=== PATIENT | male | born 1950 | race Caucasian/White ===

== ENCOUNTER 2016-03-30 07:24 | Outpatient (CLI) | payer MEDICARE, BC | END 2016-03-30 07:25 | disposition home or self-care (01) | DX: I10 Essential (primary) hypertension (principal) ==

== ENCOUNTER 2017-04-10 18:38 | Emergency (ER) | payer MEDICARE, BC ==
[2017-04-10] MEDS ORDERED: BACITRACIN OINT TOP STA (20:07)
--- NOTE | 2017-04-10 20:10 | ED Physician Documentation ---
PD HPI HEENT - Stated complaint Stated Complaint: FACE INJ - Chief complaint Chief Complaint: Heent - History obtained from History obtained from: Patient, Family - History of Present Illness Timing - onset: Today Timing - details: Abrupt onset Location: Nose, Mouth Associated symptoms: No: Fever, Unable to swallow Similar symptoms before: Has not had sx before Recently seen: Not recently seen - Additional information Additional information: Patient is a 66 year old male with no significant past medical history who is presenting to the emergency department after falling. patient states that he mis stepped and fell foward hitting his face. patient denies any loc and denies any blood thinners. Review of Systems Constitutional: denies: Fever, Chills Eyes: denies: Decreased vision, Photophobia Ears: denies: Drainage/discharge Nose: denies: Epistaxis Throat: denies: Dental pain / toothache Cardiac: denies: Chest pain / pressure Respiratory: denies: Dyspnea GI: denies: Nausea, Vomiting Skin: reports: Abrasion (s) Musculoskeletal: denies: Neck pain, Back pain, Extremity pain Neurologic: reports: Head injury. denies: Generalized weakness, Focal weakness , Headache Immunocompromised: denies: Immunocompromised PD PAST MEDICAL HISTORY - Past Medical History Cardiovascular: Hypertension, High cholesterol Respiratory: None GI: Hepatitis : Other HEENT: Chronic vision loss, Chronic sinusitis, Chronic hearing loss Psych: Anxiety, Panic attacks Musculoskeletal: None Derm: None - Past Surgical History Past Surgical History: Yes General: Other HEENT: Cataracts Derm: Skin cancer surgery - Present Medications Home Medications: Ambulatory Orders Medication Instructions Recorded Confirmed Acetaminophen [Tylenol] 650 mg PO Q6H PRN #30 tablet 11/07/12 04/10/17 Alprazolam [Xanax] 0.5 mg PO DAILY 11/07/12 04/10/17 Cholecalciferol (Vitamin D3) 20,000 unit PO DAILY 11/07/12 04/10/17 [Vitamin D] Fenofibric Acid (Choline) 135 mg PO DAILY 11/07/12 04/10/17 [Trilipix] Lisinopril [Zestril] 10 mg PO DAILY 11/07/12 04/10/17 Oxybutynin [Ditropan] 10 mg PO DAILY 11/07/12 04/10/17 Tamsulosin [Flomax] 0.4 mg PO DAILY 11/07/12 04/10/17 - Allergies Allergies/Adverse Reactions: Allergies Allergy/AdvReac Type Severity Reaction Status Date / Time No Known Drug Allergies Allergy Verified 04/16/15 11:02 - Social History Does the pt smoke?: No Smoking Status: Never smoker Does the pt drink ETOH?: Yes Does the pt have substance abuse?: No Substance Use and Type: Marijuana - Immunizations Immunizations are current?: Yes - POLST Patient has POLST: No PD ED PE NORMAL - Vitals Vital signs reviewed: Yes - General General: Alert and oriented X 3, No acute distress - HEENT HEENT: Moist mucous membranes - Neck Neck: Supple, no meningeal sign, No bony TTP - Cardiac Cardiac: RRR, No murmur - Respiratory Respiratory: No respiratory distress - Abdomen Abdomen: Soft, Non tender, Non distended - Extremities Extremities: No tenderness to palpate - Neuro Neuro: Alert and oriented X 3, No motor deficit, No sensory deficit, Normal speech Eye Opening: Spontaneous Motor: Obeys Commands Verbal: Oriented GCS Score: 15 - Psych Psych: Normal mood PD ED PE EXPANDED - HEENT HEENT: Head injury (abrasion to right side of patients face, hematoma above right eye, abrasion on nose and mouth), PERRL, Other (no pain with ocular movement. No sign of entraptment). No: Gaze palsy, Right nares epsitaxis, Left nares epistaxis, Dental trauma Results - Vitals Vitals: Vital Signs - 24 hr 04/10/17 04/10/17 18:49 20:19 Temperature 36.7 C 36.4 C L Heart Rate 74 65 Respiratory 16 18 Rate Blood Pressure 140/102 H 148/98 H O2 Saturation 96 96 Oxygen O2 Source Room air PD MEDICAL DECISION MAKING - ED course Complexity details: reviewed old records, reviewed results, re-evaluated patient , considered differential, d/w patient ED course: Patient was seen and examined at bedside. Patient was well appearing and no distress. Patient had no bony deformity and the likelihood of significant fracture was low. Patient's wounds were cleaned and dressed. Patient required no further work up and was stable for discharge with outpatient follow up. Departure - Departure Disposition: 01 Home, Self Care Clinical Impression: Facial abrasion Condition: Good Instructions: ED Abrasion Follow-Up: Santana Daugherty MD [Primary Care Provider] - Within 3 Days Comments: It is unlikely that there are any fractures. You will need to keep your wounds clean and dry and you can apply topical antibiotics. You will likely be more sore tomorrow and the next day and will likely develop neck and back pain, along with extra bruising. You should take motrin or tylenol as needed for pain. You may return to the emergency department at any time for new, worsening or uncontrollable symptoms. Discharge Date/Time: 04/10/17 20:25
[2017-04-10] MEDS ORDERED: ACETAMINOPHEN 500 MG TABLET PO STA (20:12)
[2017-04-10 20:19] VITALS: BP 148/98
== END 2017-04-10 20:25 | disposition home or self-care (01) ==
LOC: ED 18:38
DX: S00.81XA Abrasion of other part of head, initial encounter (principal); S00.11XA Contusion of right eyelid and periocular area, initial encounter; W10.9XXA Fall (on) (from) unspecified stairs and steps, initial encounter; I10 Essential (primary) hypertension; E78.00 Pure hypercholesterolemia, unspecified; K75.9 Inflammatory liver disease, unspecified
CPT/HCPCS: 99283; A9270

== ENCOUNTER 2018-01-28 08:48 | Inpatient (IN) | payer MEDICARE, BC ==
[2018-01-28] MEDS ORDERED: MORPHINE 2 MG/ML CARPUJECT IVP STA (09:38)
[2018-01-28] MEDS ORDERED: ONDANSETRON 4 MG/2 ML VIAL IVP STA (09:38)
[2018-01-28] MEDS ORDERED: SODIUM CHLORIDE 0.9% 1,000 ML IV ONE (09:38)
--- NOTE | 2018-01-28 09:40 | ED Physician Documentation ---
History of Present Illness - Stated complaint Stated Complaint: MALE RT SIDE - Chief complaint Chief Complaint: General - Additonal information Additional information: hx from pt 67 male playing with heavy dog yesterday swelling to R inguinal region similar to prior hernia cannot reduce having BM chills no fever no NV Review of Systems Constitutional: denies: Fever Cardiac: denies: Chest pain / pressure Respiratory: denies: Dyspnea GI: reports: Abdominal Pain. denies: Nausea, Vomiting PD PAST MEDICAL HISTORY - Past Medical History Past Medical History: Yes Cardiovascular: Hypertension, High cholesterol Respiratory: Pneumonia Neuro: None GI: Hepatitis : Other HEENT: Chronic vision loss, Chronic sinusitis, Chronic hearing loss Psych: Anxiety, Panic attacks Musculoskeletal: None Derm: None Other Past Medical History: hernia - Past Surgical History Past Surgical History: Yes General: Other HEENT: Cataracts Derm: Skin cancer surgery - Present Medications Home Medications: Ambulatory Orders Medication Instructions Recorded Confirmed Acetaminophen [Tylenol] 650 mg PO Q6H PRN #30 tablet 11/07/12 04/10/17 Alprazolam [Xanax] 0.5 mg PO DAILY 11/07/12 04/10/17 Cholecalciferol (Vitamin D3) 20,000 unit PO DAILY 11/07/12 04/10/17 [Vitamin D] Fenofibric Acid (Choline) 135 mg PO DAILY 11/07/12 04/10/17 [Trilipix] Lisinopril [Zestril] 10 mg PO DAILY 11/07/12 04/10/17 Oxybutynin [Ditropan] 10 mg PO DAILY 11/07/12 04/10/17 Tamsulosin [Flomax] 0.4 mg PO DAILY 11/07/12 04/10/17 - Allergies Allergies/Adverse Reactions: Allergies Allergy/AdvReac Type Severity Reaction Status Date / Time No Known Drug Allergies Allergy Verified 04/16/15 11:02 - Social History Does the pt smoke?: No Smoking Status: Former smoker Does the pt drink ETOH?: Yes ETOH Use: Wine Does the pt have substance abuse?: Yes Substance Use and Type: Marijuana - Immunizations Immunizations are current?: Yes - POLST Patient has POLST: No PD ED PE NORMAL - Vitals Vital signs reviewed: Yes - General General: Alert and oriented X 3 - Cardiac Cardiac: RRR - Respiratory Respiratory: No respiratory distress - Abdomen Abdomen: Other (+ BS non distended firm irreducible R inguinal hernia) Results - Vitals Vitals: Vital Signs - 24 hr 01/28/18 08:54 Temperature 36.3 C L Heart Rate 85 Respiratory 18 Rate Blood Pressure 185/104 H O2 Saturation 96 Oxygen O2 Source Room air - Labs Labs: Laboratory Tests 01/28/18 01/28/18 11:51 11:51 WBC 19.8 H RBC 4.85 Hgb 15.6 Hct 45.9 MCV 94.7 H MCH 32.2 H MCHC 34.0 RDW 13.2 Plt Count 268 MPV 7.4 Neut # (Auto) 18.4 H Lymph # (Auto) 0.4 L [place] # (Auto) 0.9 Eos # (Auto) 0.0 Baso # (Auto) 0.0 Absolute Nucleated RBC 0.01 Nucleated RBC % 0.0 Manual Slide Review Indicated Sodium 133 L Potassium 3.2 L Chloride 98 L Carbon Dioxide 26 Anion Gap 9.0 BUN 18 Creatinine 1.0 Estimated GFR (MDRD) 74 L Glucose 152 H Calcium 9.2 PD MEDICAL DECISION MAKING - ED course ED course: I am still unable to reduce after morphine 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
--- NOTE | 2018-01-28 11:56 | ANESTHESIA ---
Pre-Anesthesia VS, & Labs - Diagnosis Right inguinal hernia - Procedure Right inguinal hernia repair Vital Signs: Temp Pulse Resp BP Pulse Ox 36.3 C L 85 18 185/104 H 96 01/28/18 08:54 01/28/18 08:54 01/28/18 08:54 01/28/18 08:54 01/28/18 08:54 Height 5 ft 7 in Weight (kg) 68.946 kg Body Mass Index 23.8 - NPO >8 hours Last Fluid Intake: H2O 0730 Home Medications and Allergies Alprazolam [Xanax] 0.5 mg PO DAILY 11/07/12 Cholecalciferol (Vitamin D3) [Vitamin D] 20,000 unit PO DAILY 11/07/12 Fenofibric Acid (Choline) [Trilipix] 135 mg PO DAILY 11/07/12 Lisinopril [Zestril] 10 mg PO DAILY 11/07/12 Oxybutynin [Ditropan] 10 mg PO DAILY 11/07/12 Tamsulosin [Flomax] 0.4 mg PO DAILY 11/07/12 Allergies/Adverse Reactions: Allergies Allergy/AdvReac Type Severity Reaction Status Date / Time No Known Drug Allergies Allergy Verified 04/16/15 11:02 Anes History & Medical History - Anesthetic History Anesthesia Complications: reports: No previous complications - Medical History Cardiovascular: reports: Hypertension, High cholesterol Pulmonary: reports: None Gastrointestinal: reports: Hepatitis (Hep C+ s/p treatment) Urinary: reports: Benign prostate hypertrophy Neuro: reports: None Musculoskeletal: reports: None Endocrine/Autoimmune: reports: None Blood Disorders: reports: None Skin: reports: None Smoking Status: Former smoker (Quit in 1981) Psychosocial: reports: Depression, Anxiety, Cannabis Other Past Medical History: hernia - Surgical History General: Other (Bilateral inguinal hernia repair) Eyes Ears Nose Throat (EENT): Cataracts Dermatologic: Skin cancer surgery Exam General: Alert, Oriented x3, Cooperative, No acute distress Dental: WNL Mouth Openin Fingerbreadth Neck Mobility: Normal Mallampati classification: II Thyromental Distance: 4-6 cm Respiratory: Lungs clear, Normal breath sounds, No respiratory distress, No accessory muscle use Cardiovascular: Regular rate, Normal S1, Normal S2, No murmurs Mental/Cognitive Status: Alert/Oriented X3, Normal for patient Cognitive Status: Within normal limits Plan Anesthesia Type: General Consent for Procedure(s) Verified and Reviewed: Yes Code Status: Attempt Resuscitation ASA classification: 2-Mild systemic disease Is this case an emergency?: Yes
[2018-01-28] MEDS ORDERED: BUPIVACAINE 0.5% PF 30 ML VIAL ONE (11:57)
[2018-01-28] MEDS ORDERED: ceFAZolin 2 GM/50 ML 2 GM/50 ML BAG IV SCH (12:15)
[2018-01-28 12:17] LABS: CALCIUM 9.2 mg/dL (8.5-10.3)
[2018-01-28 12:36] LABS: BASOPHILS % (AUTO) 0.1 %; HGB - HEMOGLOBIN 15.6 g/dL (14.0-18.0); LYMPHOCYTES # (AUTO) 0.4 10^3/uL (1.5-3.5); LYMPHOCYTES % (AUTO) 2.1 %; MEAN CORPUSCULAR HEMOGLOBIN 32.2 pg (27.0-31.0); MEAN CORPUSCULAR VOLUME 94.7 fL (80.0-94.0); MEAN PLATELET VOLUME 7.4 fL (7.4-11.4); MONOCYTES # (AUTO) 0.9 10^3/uL (0.0-1.0); MONOCYTES % (AUTO) 4.7 %; NEUTROPHILS # (AUTO) 18.4 10^3/uL (1.5-6.6); NEUTROPHILS % (AUTO) 93.1 %; PLT - PLATELET COUNT 268 10^3/uL (130-450); RED BLOOD COUNT 4.85 10^6/uL (4.70-6.10); RED CELL DISTRIBUTION WIDTH 13.2 % (12.0-15.0); WHITE BLOOD COUNT 19.8 x10^3/uL (4.8-10.8)
[2018-01-28] MEDS ORDERED: LACTATED RINGERS 1,000 ML IV ONE (12:39)
[2018-01-28] MEDS ORDERED: PHENYLEPHRINE 50 MG/5 ML VIAL IV ONE (13:04)
[2018-01-28] MEDS ORDERED: ACETAMINOPHEN 1,000 MG/100 ML 100 ML IV ONE (13:04)
[2018-01-28] MEDS ORDERED: PROPOFOL 200 MG/20 ML VIAL IVP ONE (13:04)
[2018-01-28] MEDS ORDERED: fentaNYL 100 MCG/2 ML VIAL IVP ONE (13:04)
[2018-01-28] MEDS ORDERED: MIDAZOLAM 2 MG/2 ML VIAL IVP ONE (13:04)
[2018-01-28] MEDS ORDERED: SODIUM CHLORIDE FLUSH 0.9% 10 ML SYRINGE IVP PRN (14:13)
[2018-01-28] MEDS ORDERED: MORPHINE 10 MG/ML VIAL IVP PRN (14:19)
--- NOTE | 2018-01-28 14:29 | IMMEDIATE POSTOPERATIVE NOTE ---
Immediate Postoperative Note - Procedure Note Procedure Date: 01/28/18 Pre-Op Diagnosis: incarcerated right inguinal hernia Procedure: open right inguinal hernia repair with mesh Post-Op Diagnosis: same Primary Surgeon: felipe Anesthesia Type: General LMA Findings: incarcerated right inguinal hernia with small bowel Complications: No complications Estimated Blood Loss (in cc): 5 Plan of Care: expectant floor management
[2018-01-28] MEDS ORDERED: LABETALOL 20 MG/4 ML SYRINGE IVP ONE (14:35)
--- NOTE | 2018-01-28 14:37 | CONSULTATION NOTE ---
Referring Provider Name of Referring Provider:: Dr. Cifuentes Consult Date: 01/28/18 Chief Complaint - Chief Complaint Chief Complaint: post-op hypertension History of Present Illness - Admitted From Admitted From:: ED - History Obtained From Records Reviewed: yes History obtained from: chart review, patient Exam Limitations: none - History of Present Illness HPI Comment/Other: Edgar Conner is a 67-year old male with a past medical history of hypertension, hyperlipidemia, anxiety disorder, panic disorders, anemia, melenoma of the skin, cataract surgery, Hep C-post treatment, inguinal hernia, tobacco dependence, marijuana dependence, remote alcohol use, and colon polyps. He states that he was playing with his 75# yellow lab named Debbie at home, and appreciated immediately that something "tore" in his right groin, so the next morning called a friend to care for his dog. He came to the ED for right groin pain that was sharp, with a prior known history of an inguinal hernia. During my exam for this consult today (of which general surgery asked for assistance with the patient's hypertension and tachycardia), he admits to at least a 3 day history of cough that was not productive, sweats and chills, but did not think much of it. Admission WBCs were elevated at ~19, with no other johnson abnormalities and there was no preop imaging obtained. On exam, he has coarse crackles, congestion, a non-productive cough, and is diaphoretic. He is breathing comfortably, on 2L of oxygen, afebrile, but diaphoretic with slight nausea. He is now post-op a right groin incarcerated hernia repair and denies chest pain, palpitations, dizziness, shortness of breath, vomiting, a new rash, uncontrolled pain, increased anxiety, or signs of bleeding. He will undergo further testing for the underlying cause of his hypertension/tachycardia with a blood pressure as high as 185/104, and a heart rate of 139 including a chest x- ray, telemetry monitoring, labs including serial troponins, an echocardiogram as he has a systolic murmur and respiratory care. Thank you for this consult. History - Past Medical History Cardiovascular: reports: Hypertension, High cholesterol Respiratory: reports: COPD, Pneumonia (at least 3 illnesses) Neuro: reports: Headaches, Fainting Endocrine/Autoimmune: reports: None GI: reports: GERD, Colon polyps, Hepatitis (Hep C+ s/p treatment) : reports: Benign prostate hypertrophy, Nocturia, Frequency HEENT: reports: Chronic vision loss, Chronic sinusitis, Chronic hearing loss Psych: reports: Depression, Anxiety, Panic attacks, Other (alcoholism, drug abuse history) Musculoskeletal: reports: Osteoarthritis, Fatigue, Chronic back pain Derm: reports: None MRSA Hx?: No Other Past Medical History: hernia - Past Surgical History General: reports: Colonoscopy, Other (Bilateral inguinal hernia repair) HEENT: reports: Cataracts Derm: reports: Skin cancer surgery (melenoma) - Family & Social History Family History: Mother: , CAD, Father: , CAD Living arrangement: At home Living Situation: Alone (with his [employer]Debbie) Social History Notes: The patient has had several girlfriends in his life and his current girlfriend resides in [place] of which he provides no further detail. He was living with his elderly mother, but she recently at age 94. He enjoys taking daily walks with his antonia [employer], Debbie. 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 He admits to alcoholism, but denies current use. He admits to tobacco dependence, but claims that he is no longer a daily user, but enjoys smoking marijuana several times per week as it helps with his back pain and anxi ety. He wishes to be a FULL code. - Substance History Use: Uses substance without health or social issues: Tobacco Use Issues: Anxiety Disorder Abuse: Recurrent use of substance despite neg consequences: Cannabis Abuse Issues: Anxiety Disorder Dependence: Experiences withdrawal or developed tolerances: Cannabis Dependence Issues: Anxiety Disorder Tobacco Details: Cigarettes (States that he no longer uses cigarettes, so switched to marijuana.) - POLST Patient has POLST: No POLST Status: Full Code Meds/Allgy - Home Medications Home Medications: Ambulatory Orders Medication Instructions Recorded Confirmed Alprazolam [Xanax] 0.5 mg PO Q8H PRN 11/07/12 01/28/18 Cholecalciferol (Vitamin D3) 2,000 unit PO DAILY 11/07/12 01/28/18 [Vitamin D] Fenofibric Acid (Choline) 135 mg PO DAILY 11/07/12 01/28/18 [Trilipix] Lisinopril [Zestril] 5 mg PO DAILY 11/07/12 01/28/18 Tamsulosin [Flomax] 0.4 mg PO QPM 11/07/12 01/28/18 Finasteride 5 mg PO QPM 01/28/18 01/28/18 Oxybutynin Chloride [Ditropan Xl] 10 mg PO QPM 01/28/18 01/28/18 - Allergies Allergies/Adverse Reactions: Allergies Allergy/AdvReac Type Severity Reaction Status Date / Time No Known Drug Allergies Allergy Verified 04/16/15 11:02 Review of Systems - Constitutional Constitutional: reports: Fatigue, Chills, Weakness, Diaphoresis - Eyes Eyes: reports: Vision loss, Corrective lenses - Ears, Nose & Throat Ears, Nose & Throat: reports: Nasal congestion, Postnasal drainage, Sore throat - Cardiovascular Cariovascular: reports: Chest pain (with deep inspiration), Exertional dyspnea, Decr. exercise tolerance - Respiratory Respiratory: reports: Cough, SOB at rest, SOB with exertion - Gastrointestinal Gastrointestinal: reports: Abdominal distention, Nausea, Reflux/heartburn, Poor appetite - Genitourinary Genitourinary: reports: Frequency, Urgency, Nocturia - Musculoskeletal Musculoskeletal: reports: Back pain - Neurological Neurological: reports: Headache, Pre-existing deficit - Psychiatric Psychiatric: reports: Depression, Anxiety - All Other Systems All Other Systems: reports: Reviewed and negative Exam - Vital Signs Reviewed Vital Signs: Yes Vital Signs: Vital Signs x48h Temp Pulse Resp BP Pulse Ox 01/28/18 14:30 36.0 C L 127 H 28 H 148/118 H 96 01/28/18 14:25 126 H 23 142/127 H 20 L 01/28/18 14:20 36.2 C L 139 H 20 176/92 H 98 01/28/18 08:54 36.3 C L 85 18 185/104 H 96 - Physical Exam General Appearance: positive: Alert, Mild distress Eyes Bilateral: positive: PERRL, No lid inflammation ENT: positive: Pharynx nml, Pharyngeal erythema Neck: positive: Thyroid nml, No JVD, Trachea midline, Lymphadenopathy (R), Lymphadenopathy (L) Respiratory: positive: Chest non-tender, Rhonchi (bilateral), Other (anterior mid chest discomfort with inspiration.) Cardiovascular: positive: Regular rate & rhythm, No gallop, Tachycardia, Systolic murmur Peripheral Pulses: positive: 2+ Abdomen: positive: Nml bowel sounds, Tenderness, Guarding, Other (rounded<soft) Back: positive: Nml inspection Skin: positive: No rash, Warm, Dry, Diaphoresis, Pallor Extremities: positive: Non-tender, Full ROM, Pedal edema Neurologic/Psychiatric: positive: Oriented x3, CN's nml (2-12), Motor nml, Sensation nml, Weakness, Depressed mood/affect Reflexes: Bicep (R): 3+, Bicep (L): 3+ Conclusion/Plan - Diagnosis Diagnosis: Hypertension. Tachycardia. Pneumonia. COPD. post operative state - Plan Plan: Hypertension Tachycardia Pneumonia COPD post operative state -Telemetry overnight, echocardiogram in the AM, EKG for a baseline and for complaints of chest pain. -Start oral metoprolol to gently treat both HTN and tachycardia, continue home lisinopril. Continue generous IV fluids for acute illness. -Routine AM labs, and 2 more serial troponins this evening. -Continue frequent nursing cares, and vital sign monitoring. -Start treatment for hospital PNA using respiratory care, Xopenex nebs to prevent worsening tachycardia, cough syrup, oxygen supplementation, obtain a sputum sample, incentive spirometry, a chest x-ray. -Draw labs given this suspected acute illness, including inflammatory markers, troponins, BMP, and CBC with differential, HgA1c, GGT to rule out recent alcohol dependence. -Plan to follow through the time of discharge for blood pressure recommendations and antibiotic choice for out patient treatment. - Lab Results Lab results reviewed: Yes Fish Bones: 01/28/18 16:49 01/28/18 16:49 - Diagnostic Imaging Results Diagnostic Imaging Results: positive: Prelim report reviewed, Read independently Diagnostic Imaging Results Comments: A 1-view chest x-ray shows bilateral rajan-hilar infiltrates. - EKG Results EKG Comparison: No prior EKG
[2018-01-28] MEDS ORDERED: LEVALBUTEROL 1.25 MG/3 ML NEB INH SCH (15:05)
[2018-01-28] MEDS ORDERED: LEVALBUTEROL 1.25 MG/3 ML NEB INH PRN (15:55)
[2018-01-28] MEDS: HYDROcod/ACETAM 5/325 MG TABLET PO PRN ×2 (16:15→20:28)
[2018-01-28] MEDS: SODIUM CHLORIDE FLUSH 0.9% 10 ML SYRINGE IVP SCH (16:17)
[2018-01-28] MEDS: D5.45NS W/20 MEQ KCL 1,000 ML IV SCH (16:17)
[2018-01-28] MEDS: guaiFENesin/CODEINE 5 ML UDC PO PRN (16:25)
[2018-01-28] MEDS: LEVALBUTEROL 1.25 MG/3 ML NEB INH SCH ×2 (16:50→20:38)
[2018-01-28 16:55] LABS: HGB - HEMOGLOBIN 15.1 g/dL (14.0-18.0); LYMPHOCYTES # (AUTO) 0.4 10^3/uL (1.5-3.5); LYMPHOCYTES % (AUTO) 2.9 %; MEAN CORPUSCULAR HEMOGLOBIN 32.9 pg (27.0-31.0); MEAN CORPUSCULAR HGB CONC 34.9 g/dL (32.0-36.0); MEAN CORPUSCULAR VOLUME 94.4 fL (80.0-94.0); MEAN PLATELET VOLUME 6.8 fL (7.4-11.4); MONOCYTES # (AUTO) 0.7 10^3/uL (0.0-1.0); NEUTROPHILS # (AUTO) 12.6 10^3/uL (1.5-6.6); NEUTROPHILS % (AUTO) 92.1 %; PLT - PLATELET COUNT 244 10^3/uL (130-450); RED BLOOD COUNT 4.59 10^6/uL (4.70-6.10); WHITE BLOOD COUNT 13.7 x10^3/uL (4.8-10.8)
[2018-01-28 17:12] LABS: HB2 TOTAL 16.8 g/dL; HEMOGLOBIN A1C 0.62 g/dL; HEMOGLOBIN A1C % 5.5 % (4.6-6.2)
[2018-01-28 17:15] LABS: ALBUMIN 4.1 g/dL (3.2-5.5); ALBUMIN/GLOBULIN RATIO 1.4 (1.0-2.2); ALKALINE PHOSPHATASE 40 IU/L (42-121); ALT ALANINE AMINOTRANSFERASE 13 IU/L (10-60); AST ASPARTATE AMINOTRANSFERASE 26 IU/L (10-42); BILIRUBIN,TOTAL 1.1 mg/dL (0.2-1.0); BUN - BLOOD UREA NITROGEN 22 mg/dL (6-20); CALCIUM 8.5 mg/dL (8.5-10.3); CARBON DIOXIDE - CO2 24 mmol/L (21-32); CHLORIDE 100 mmol/L (101-111); CREATININE 1.1 mg/dL (0.6-1.2); GFR - MDRD 67 (>89); GLUCOSE 170 mg/dL (70-100); SODIUM 133 mmol/L (135-145); TOTAL PROTEIN 7.1 g/dL (6.7-8.2)
[2018-01-28 17:16] LABS: CRP - C-REACTIVE PROTEIN < 1.0 mg/dL (0-1.0)
[2018-01-28 17:24] LABS: DIFFERENTIAL COMMENT MANUAL=AUTO DIFF; PLATELET ESTIMATE, MANUAL NORMAL (130-450,000) (NORMAL); PLATELET MORPHOLOGY NORMAL APPEARANCE (NORMAL); RBC MORPHOLOGY (MULTIPLE) NORMAL APPEARANCE (NORMAL)
--- NOTE | 2018-01-28 18:34 | OPERATIVE REPORT ---
DATE OF SERVICE: 01/28/2018 Physician: Eddie Cifuentes MD PREOPERATIVE DIAGNOSIS: Right incarcerated inguinal hernia. POSTOPERATIVE DIAGNOSIS: Right incarcerated inguinal hernia with a loop of small intestine. PROCEDURE PERFORMED: Open repair of right inguinal hernia with mesh. SURGEON: Eddie Cifuentes MD ANESTHESIA TYPE/PROVIDER: General anesthesia, LMA INDICATIONS FOR PROCEDURE: The patient is a 67-year-old man who presented to the ER complaining of an irreducible right inguinal hernia. In 1974 he had the hernia repaired, and it recurred a couple years ago but has always been reducible. In the ER, it was not reducible, and the patient was prepped for surgery. PROCEDURE IN DETAIL: The risks and benefits explained to the patient, and he agreed for the procedure. He was taken to the operating room and placed under general anesthesia, and LMA was placed. The right groin was prepped and draped, a timeout was performed, and everyone in the room agreed to the procedure. We began by reopening his old incision, which was a right transverse inguinal incision of about 6 or 7 cm in length. On opening, we found his external oblique was denuded and basically nonexistent. The hernia sac was easily identified and found to contain a loop of bowel with moderate ischemia. The spermatic cord was identified and dissected off the sac. The internal inguinal ring was then opened for about a centimeter or 2 using cautery superiorly. At that point, the color of the loop of incarcerated bowel improved and it was deemed viable. The loop was then reduced back in the abdomen. The hernia sac was also reduced back into the preperitoneal space. The anatomy of the inguinal canal was then defined, and a flat piece of polypropylene mesh was cut to fit along with a slit to accommodate the cord. This was secured to the tissue overlying the pubic tubercle, to the conjoint tendon, the internal oblique, as well as the shelving edge of the inguinal canal. This was secured using Prolene. The 2 tails of the mesh were brought around the cord to encircle it and were secured in place. The overlying soft tissue was closed over the mesh and what external oblique aponeurosis there was was incorporated into that. Local anesthetic was infused in the soft tissue of the incision, and Monocryl was used to close the overlying skin with Dermabond. This terminated the procedure. The patient tolerated it well. He was taken to recovery in stable condition. Instrument and lap counts were correct. He will be kept overnight to monitor the recovery of the incarcerated bowel segment. COMPLICATIONS: None. SPECIMEN: None. ESTIMATED BLOOD LOSS: 5 mL. PLAN: Plan is expectant management on the floor. TD: 01/28/2018 14:35 MTDThanh
--- NOTE | 2018-01-28 18:38 | XRAY Report ---
Reason: cough, lung congestion Procedure Date: 01/28/2018 Accession Number: [id number] / [id number] Procedure: XR - Chest 1 View X-Ray CPT Code: 36130 FULL RESULT: EXAM: CHEST RADIOGRAPHY EXAM DATE: 01/28/2018 06:12 PM. CLINICAL HISTORY: Cough, lung congestion. COMPARISON: 01/16/2013 3:02 PM. TECHNIQUE: 1 view. FINDINGS: Lungs/Pleura: Patchy perihilar infiltrates, left worse than right. No effusion or pneumothorax. Mediastinum: Within exam limitations, the cardiomediastinal contour is normal. Other: None. IMPRESSION: Left greater than right perihilar infiltrates. RADIA
[2018-01-28] MEDS: METOPROLOL SUCCINATE 25 MG TABLET PO SCH (18:45)
[2018-01-28] MEDS: ENOXAPARIN 40 MG/0.4 ML SYRINGE SUBQ SCH (18:46)
[2018-01-28] MEDS ORDERED: VANCOMYCIN PER PHARMACY 0.1 GM in SODIUM CHLORIDE 0.9% 250 ML IV SCH (20:00)
[2018-01-28] MEDS: PIPERACILLIN/TAZOBACTAM 3.375 GM in SODIUM CHLORIDE 0.9% MINIBAG 100 ML IV SCH (20:29)
[2018-01-28] MEDS: VANCOMYCIN INJ 0.75 GM in SODIUM CHLORIDE 0.9% 250 ML IV SCH (21:42)
[2018-01-28 22:42] LABS: BILIRUBIN,URINE NEGATIVE (NEGATIVE); GLUCOSE, URINE (UA) 100 mg/dL (NEGATIVE); KETONES,URINE (UA) NEGATIVE (NEGATIVE); LEUKOCYTE ESTERASE, URINE NEGATIVE (NEGATIVE); NITRITE,URINE NEGATIVE (NEGATIVE); OCCULT BLOOD,URINE SMALL (NEGATIVE); PROTEIN,URINE NEGATIVE (NEGATIVE); UROBILINOGEN,URINE 0.2 (NORMAL) E.U./dL (NORMAL)
[2018-01-28 22:54] LABS: BACTERIA,URINE None Seen /HPF (None Seen); CLARITY,URINE CLEAR (CLEAR); SQUAMOUS EPITHELIAL CELL,UR NONE SEEN (<= Few)
[2018-01-29] MEDS: SODIUM CHLORIDE FLUSH 0.9% 10 ML SYRINGE IVP SCH ×3 (00:36→17:32)
[2018-01-29] MEDS: D5.45NS W/20 MEQ KCL 1,000 ML IV SCH ×2 (02:10→16:33)
[2018-01-29] MEDS: PIPERACILLIN/TAZOBACTAM 3.375 GM in SODIUM CHLORIDE 0.9% MINIBAG 100 ML IV SCH ×4 (02:10→19:56)
[2018-01-29 06:16] LABS: BASOPHILS % (AUTO) 0.1 %; HGB - HEMOGLOBIN 12.6 g/dL (14.0-18.0); LYMPHOCYTES # (AUTO) 0.9 10^3/uL (1.5-3.5); LYMPHOCYTES % (AUTO) 6.7 %; MEAN CORPUSCULAR HEMOGLOBIN 32.7 pg (27.0-31.0); MEAN CORPUSCULAR HGB CONC 34.1 g/dL (32.0-36.0); MEAN CORPUSCULAR VOLUME 95.9 fL (80.0-94.0); MEAN PLATELET VOLUME 7.1 fL (7.4-11.4); MONOCYTES # (AUTO) 1.3 10^3/uL (0.0-1.0); MONOCYTES % (AUTO) 9.8 %; NEUTROPHILS # (AUTO) 11.1 10^3/uL (1.5-6.6); NEUTROPHILS % (AUTO) 83.4 %; PLT - PLATELET COUNT 227 10^3/uL (130-450); RED BLOOD COUNT 3.85 10^6/uL (4.70-6.10); RED CELL DISTRIBUTION WIDTH 13.4 % (12.0-15.0); WHITE BLOOD COUNT 13.3 x10^3/uL (4.8-10.8)
[2018-01-29 06:26] LABS: ALBUMIN 3.4 g/dL (3.2-5.5); ALBUMIN/GLOBULIN RATIO 1.4 (1.0-2.2); CALCIUM 8.3 mg/dL (8.5-10.3); MAGNESIUM 1.8 mg/dL (1.7-2.8); TOTAL PROTEIN 5.9 g/dL (6.7-8.2)
[2018-01-29] MEDS ORDERED: ALPRAZolam 0.25 MG TABLET PO PRN (06:30)
[2018-01-29] MEDS: LEVALBUTEROL 1.25 MG/3 ML NEB INH SCH (07:23)
[2018-01-29] MEDS: HYDROcod/ACETAM 5/325 MG TABLET PO PRN ×3 (07:51→21:17)
--- NOTE | 2018-01-29 08:44 | PROVIDER PROGRESS NOTE ---
Subjective - Prog Note Date Prog Note Date: 01/29/18 Prog Note Time: 08:40 - Subjective Pt reports feeling: Improved Subjective: Edgar has no further complaints of chest pain and believes that his overall condition has improved. He denies shortness of breath, nausea, vomiting, a rash, chest pain, or a worsening cough. Current Medications - Current Medications Current Medications: Active Medications Hydrocodone Bitart/Acetaminophen ([place] 5/325) 1 tab PO Q4HR PRN PRN Reason: PAIN Last Admin: 01/29/18 16:44 Dose: 1 tab Alprazolam (Xanax) 0.5 mg PO DAILY PRN PRN Reason: Anxiety Aspirin (Ecotrin) 325 mg PO DAILY [facility] Atorvastatin Calcium (Lipitor) 80 mg PO QPM [facility] Finasteride (Proscar) 5 mg PO QPM [facility] Guaifenesin/Codeine Phosphate (Robitussin Ac) 5 ml PO Q6HR PRN PRN Reason: Cough Last Admin: 01/29/18 16:44 Dose: 5 ml Potassium Chloride/Dextrose/Sod Cl (D5.45ns W/20 Meq Kcl) 1,000 mls @ 100 mls/hr IV .Q10H [facility] Last Admin: 01/29/18 16:33 Dose: 100 mls/hr Piperacillin Sod/Tazobactam (Sod 3.375 gm/ Sodium Chloride) 100 mls @ 200 mls/hr IV Q6H [facility] Last Infusion: 01/29/18 15:20 Dose: Infused Vancomycin HCl 1 gm/ Sodium (Chloride) 250 mls @ 167 mls/hr IV Q12H [facility] Levalbuterol HCl (Xopenex) 1.25 mg INH RTQ4H PRN PRN Reason: SHORTNESS OF AIR/WHEEZING Lisinopril (Zestril) 5 mg PO DAILY [facility] Metoprolol Succinate (Toprol Xl) 25 mg PO DAILY [facility] Last Admin: 01/29/18 09:13 Dose: 25 mg Morphine Sulfate (Morphine) 2 mg IVP Q2H PRN PRN Reason: Severe Pain Nitroglycerin (Nitrostat) 0.4 mg SL Q5MIN PRN PRN Reason: Chest Pain Oxybutynin Chloride (Ditropan) 10 mg PO DAILY [facility] Last Admin: 01/29/18 09:17 Dose: 10 mg Sodium Chloride (Normal Saline Flush 0.9%) 10 ml IVP PRN PRN PRN Reason: NEEDED PER PROVIDER ORDERS Last Admin: 01/28/18 21:44 Dose: 10 ml Sodium Chloride (Normal Saline Flush 0.9%) 10 ml IVP 0100,0900,1700 [facility] Last Admin: 01/29/18 17:32 Dose: Not Given Tamsulosin HCl (Flomax) 0.4 mg PO DAILY [facility] Last Admin: 01/29/18 09:00 Dose: 0.4 mg Alprazolam [Xanax] 0.5 mg PO Q8H PRN 11/07/12 Cholecalciferol (Vitamin D3) [Vitamin D] 2,000 unit PO DAILY 11/07/12 Fenofibric Acid (Choline) [Trilipix] 135 mg PO DAILY 11/07/12 Lisinopril [Zestril] 5 mg PO DAILY 11/07/12 Tamsulosin [Flomax] 0.4 mg PO QPM 11/07/12 Finasteride 5 mg PO QPM 01/28/18 Oxybutynin Chloride [Ditropan Xl] 10 mg PO QPM 01/28/18 Objective - Vital Signs/Intake & Output Reviewed Vital Signs: Yes Vital Signs: Vital Signs x48h Temp Pulse Pulse Resp BP Pulse Ox 01/29/18 07:23 87 18 01/29/18 04:43 37.1 C 80 16 118/74 98 Intake & Output: Intake & Output 01/26/18 01/27/18 01/28/18 01/29/18 23:59 23:59 23:59 23:59 Intake Total 1250 1458.333 Output Total 675 1300 Balance 575 158.333 - Objective General Appearance: positive: Alert, Mild distress, Anxious Eyes Bilateral: positive: PERRL, No lid inflammation ENT: positive: Pharynx nml, No signs of dehydration Neck: positive: Thyroid nml, No JVD, Trachea midline Respiratory: positive: Chest non-tender, No respiratory distress, Rhonchi (low bases bilaterally) Cardiovascular: positive: Regular rate & rhythm, Systolic murmur Peripheral Pulses: 1+ Radial (R), 1+ Radial (L) Abdomen: positive: Non-tender, Nml bowel sounds, Other (rounded, soft) Back: positive: Nml inspection Skin: positive: Color nml, No rash, Warm, Dry Extremities: positive: Non-tender, Full ROM, Nml appearance, No pedal edema Neurologic/Psychiatric: positive: Oriented x3, CN's nml (2-12), Motor nml, Sensation nml, Mood/affect nml, Weakness, Other (anxious and seems concerned about his health) Reflexes: Bicep (R): 4+, Bicep (L): 4+ - Lab Results Fish Bones: 01/29/18 05:56 01/29/18 05:56 Other Labs: Lab Results x24hrs 01/29/18 01/29/18 01/29/18 Range/Units 05:56 05:56 05:56 WBC (4.8-10.8) x10^3/uL RBC (4.70-6.10) 10^6/uL Hgb (14.0-18.0) g/dL Hct (42.0-52.0) % MCV (80.0-94.0) fL MCH (27.0-31.0) pg MCHC (32.0-36.0) g/dL RDW (12.0-15.0) % Plt Count (130-450) 10^3/uL MPV (7.4-11.4) fL Neut # (Auto) (1.5-6.6) 10^3/uL Lymph # (Auto) (1.5-3.5) 10^3/uL Worth # (Auto) (0.0-1.0) 10^3/uL Eos # (Auto) (0.0-0.7) 10^3/uL Baso # (Auto) (0.0-0.1) 10^3/uL Absolute Nucleated RBC x10^3/uL Band Neuts % (Manual) Abnorm Lymph % (Manual) Nucleated RBC % /100WBC Neutrophils # (Manual) Lymphocytes # (Manual) Monocytes # (Manual) Eosinophils # (Manual) Basophils # (Manual) Differential Comment Manual Slide Review Platelet Estimate (NORMAL) Platelet Morphology (NORMAL) RBC Morph Micro Appear (NORMAL) ESR (0-20) mm/Hr Sodium 137 (135-145) mmol/L Potassium 4.1 (3.5-5.0) mmol/L Chloride 109 (101-111) mmol/L Carbon Dioxide 24 (21-32) mmol/L Anion Gap 4.0 L (6-13) BUN 26 H (6-20) mg/dL Creatinine 1.0 (0.6-1.2) mg/dL Estimated GFR (MDRD) 74 L (>89) Glucose 146 H (70-100) mg/dL Glycated Hemoglobin (4.6-6.2) % Estim Average Glucose (70-100) Lactic Acid 1.8 (0.5-2.2) mmol/L Calcium 8.3 L (8.5-10.3) mg/dL Magnesium 1.8 (1.7-2.8) mg/dL Total Bilirubin 1.0 (0.2-1.0) mg/dL GGT (8-55) IU/L AST 29 (10-42) IU/L ALT 13 (10-60) IU/L Alkaline Phosphatase 27 L (42-121) IU/L Troponin I 0.22 (<0.49) ng/mL C-Reactive Protein (0-1.0) mg/dL Total Protein 5.9 L (6.7-8.2) g/dL Albumin 3.4 (3.2-5.5) g/dL Globulin 2.5 (2.1-4.2) g/dL Albumin/Globulin Ratio 1.4 (1.0-2.2) Urine Color Urine Clarity (CLEAR) Urine pH (5.0-7.5) PH Ur Specific [place] (1.002-1.030) Urine Protein (NEGATIVE) mg/dL Urine Glucose (UA) (NEGATIVE) mg/dL Urine Ketones (NEGATIVE) mg/dL Urine Occult Blood (NEGATIVE) Urine Nitrite (NEGATIVE) Urine Bilirubin (NEGATIVE) Urine Urobilinogen (NORMAL) E.U./dL Ur Leukocyte Esterase (NEGATIVE) Urine RBC (0-5) /HPF Urine WBC (0-3) /HPF Ur Squamous Epith Cells (<= Few) Urine Bacteria (None Seen) /HPF 01/29/18 01/28/18 01/28/18 Range/Units 05:56 23:30 20:25 WBC 13.3 H (4.8-10.8) x10^3/uL RBC 3.85 L (4.70-6.10) 10^6/uL Hgb 12.6 L (14.0-18.0) g/dL Hct 36.9 L (42.0-52.0) % MCV 95.9 H (80.0-94.0) fL MCH 32.7 H (27.0-31.0) pg MCHC 34.1 (32.0-36.0) g/dL RDW 13.4 (12.0-15.0) % Plt Count 227 (130-450) 10^3/uL MPV 7.1 L (7.4-11.4) fL Neut # (Auto) 11.1 H (1.5-6.6) 10^3/uL Lymph # (Auto) 0.9 L (1.5-3.5) 10^3/uL Worth # (Auto) 1.3 H (0.0-1.0) 10^3/uL Eos # (Auto) 0.0 (0.0-0.7) 10^3/uL Baso # (Auto) 0.0 (0.0-0.1) 10^3/uL Absolute Nucleated RBC 0.00 x10^3/uL Band Neuts % (Manual) Abnorm Lymph % (Manual) Nucleated RBC % 0.0 /100WBC Neutrophils # (Manual) Lymphocytes # (Manual) Monocytes # (Manual) Eosinophils # (Manual) Basophils # (Manual) Differential Comment Manual Slide Review Platelet Estimate (NORMAL) Platelet Morphology (NORMAL) RBC Morph Micro Appear (NORMAL) ESR (0-20) mm/Hr Sodium (135-145) mmol/L Potassium (3.5-5.0) mmol/L Chloride (101-111) mmol/L Carbon Dioxide (21-32) mmol/L Anion Gap (6-13) BUN (6-20) mg/dL Creatinine (0.6-1.2) mg/dL Estimated GFR (MDRD) (>89) Glucose (70-100) mg/dL Glycated Hemoglobin (4.6-6.2) % Estim Average Glucose (70-100) Lactic Acid (0.5-2.2) mmol/L Calcium (8.5-10.3) mg/dL Magnesium (1.7-2.8) mg/dL Total Bilirubin (0.2-1.0) mg/dL GGT (8-55) IU/L AST (10-42) IU/L ALT (10-60) IU/L Alkaline Phosphatase (42-121) IU/L Troponin I 0.18 (<0.49) ng/mL C-Reactive Protein (0-1.0) mg/dL Total Protein (6.7-8.2) g/dL Albumin (3.2-5.5) g/dL Globulin (2.1-4.2) g/dL Albumin/Globulin Ratio (1.0-2.2) Urine Color YELLOW Urine Clarity CLEAR (CLEAR) Urine pH 6.0 (5.0-7.5) PH Ur Specific [place] 1.020 (1.002-1.030) Urine Protein NEGATIVE (NEGATIVE) mg/dL Urine Glucose (UA) 100 H (NEGATIVE) mg/dL Urine Ketones NEGATIVE (NEGATIVE) mg/dL Urine Occult Blood SMALL H (NEGATIVE) Urine Nitrite NEGATIVE (NEGATIVE) Urine Bilirubin NEGATIVE (NEGATIVE) Urine Urobilinogen 0.2 (NORMAL) (NORMAL) E.U./dL Ur Leukocyte Esterase NEGATIVE (NEGATIVE) Urine RBC 6-10 H (0-5) /HPF Urine WBC 4-5 (0-3) /HPF Ur Squamous Epith Cells NONE SEEN (<= Few) Urine Bacteria None Seen (None Seen) /HPF 01/28/18 01/28/18 01/28/18 Range/Units 16:49 16:49 16:49 WBC (4.8-10.8) x10^3/uL RBC (4.70-6.10) 10^6/uL Hgb (14.0-18.0) g/dL Hct (42.0-52.0) % MCV (80.0-94.0) fL MCH (27.0-31.0) pg MCHC (32.0-36.0) g/dL RDW (12.0-15.0) % Plt Count (130-450) 10^3/uL MPV (7.4-11.4) fL Neut # (Auto) (1.5-6.6) 10^3/uL Lymph # (Auto) (1.5-3.5) 10^3/uL Worth # (Auto) (0.0-1.0) 10^3/uL Eos # (Auto) (0.0-0.7) 10^3/uL Baso # (Auto) (0.0-0.1) 10^3/uL Absolute Nucleated RBC x10^3/uL Band Neuts % (Manual) Abnorm Lymph % (Manual) Nucleated RBC % /100WBC Neutrophils # (Manual) Lymphocytes # (Manual) Monocytes # (Manual) Eosinophils # (Manual) Basophils # (Manual) Differential Comment Manual Slide Review Platelet Estimate (NORMAL) Platelet Morphology (NORMAL) RBC Morph Micro Appear (NORMAL) ESR (0-20) mm/Hr Sodium (135-145) mmol/L Potassium (3.5-5.0) mmol/L Chloride (101-111) mmol/L Carbon Dioxide (21-32) mmol/L Anion Gap (6-13) BUN (6-20) mg/dL Creatinine (0.6-1.2) mg/dL Estimated GFR (MDRD) (>89) Glucose (70-100) mg/dL Glycated Hemoglobin 5.5 (4.6-6.2) % Estim Average Glucose 111 H (70-100) Lactic Acid 1.5 (0.5-2.2) mmol/L Calcium (8.5-10.3) mg/dL Magnesium (1.7-2.8) mg/dL Total Bilirubin (0.2-1.0) mg/dL GGT 9 (8-55) IU/L AST (10-42) IU/L ALT (10-60) IU/L Alkaline Phosphatase (42-121) IU/L Troponin I (<0.49) ng/mL C-Reactive Protein (0-1.0) mg/dL Total Protein (6.7-8.2) g/dL Albumin (3.2-5.5) g/dL Globulin (2.1-4.2) g/dL Albumin/Globulin Ratio (1.0-2.2) Urine Color Urine Clarity (CLEAR) Urine pH (5.0-7.5) PH Ur Specific [place] (1.002-1.030) Urine Protein (NEGATIVE) mg/dL Urine Glucose (UA) (NEGATIVE) mg/dL Urine Ketones (NEGATIVE) mg/dL Urine Occult Blood (NEGATIVE) Urine Nitrite (NEGATIVE) Urine Bilirubin (NEGATIVE) Urine Urobilinogen (NORMAL) E.U./dL Ur Leukocyte Esterase (NEGATIVE) Urine RBC (0-5) /HPF Urine WBC (0-3) /HPF Ur Squamous Epith Cells (<= Few) Urine Bacteria (None Seen) /HPF 01/28/18 01/28/18 01/28/18 Range/Units 16:49 16:49 16:49 WBC (4.8-10.8) x10^3/uL RBC (4.70-6.10) 10^6/uL Hgb (14.0-18.0) g/dL Hct (42.0-52.0) % MCV (80.0-94.0) fL MCH (27.0-31.0) pg MCHC (32.0-36.0) g/dL RDW (12.0-15.0) % Plt Count (130-450) 10^3/uL MPV (7.4-11.4) fL Neut # (Auto) (1.5-6.6) 10^3/uL Lymph # (Auto) (1.5-3.5) 10^3/uL Worth # (Auto) (0.0-1.0) 10^3/uL Eos # (Auto) (0.0-0.7) 10^3/uL Baso # (Auto) (0.0-0.1) 10^3/uL Absolute Nucleated RBC x10^3/uL Band Neuts % (Manual) Abnorm Lymph % (Manual) Nucleated RBC % /100WBC Neutrophils # (Manual) Lymphocytes # (Manual) Monocytes # (Manual) Eosinophils # (Manual) Basophils # (Manual) Differential Comment Manual Slide Review Platelet Estimate (NORMAL) Platelet Morphology (NORMAL) RBC Morph Micro Appear (NORMAL) ESR (0-20) mm/Hr Sodium 133 L (135-145) mmol/L Potassium 3.3 L (3.5-5.0) mmol/L Chloride 100 L (101-111) mmol/L Carbon Dioxide 24 (21-32) mmol/L Anion Gap 9.0 (6-13) BUN 22 H (6-20) mg/dL Creatinine 1.1 (0.6-1.2) mg/dL Estimated GFR (MDRD) 67 L (>89) Glucose 170 H (70-100) mg/dL Glycated Hemoglobin (4.6-6.2) % Estim Average Glucose (70-100) Lactic Acid (0.5-2.2) mmol/L Calcium 8.5 (8.5-10.3) mg/dL Magnesium 1.7 (1.7-2.8) mg/dL Total Bilirubin 1.1 H (0.2-1.0) mg/dL GGT (8-55) IU/L AST 26 (10-42) IU/L ALT 13 (10-60) IU/L Alkaline Phosphatase 40 L (42-121) IU/L Troponin I 0.04 (<0.49) ng/mL C-Reactive Protein < 1.0 (0-1.0) mg/dL Total Protein 7.1 (6.7-8.2) g/dL Albumin 4.1 (3.2-5.5) g/dL Globulin 3.0 (2.1-4.2) g/dL Albumin/Globulin Ratio 1.4 (1.0-2.2) Urine Color Urine Clarity (CLEAR) Urine pH (5.0-7.5) PH Ur Specific [place] (1.002-1.030) Urine Protein (NEGATIVE) mg/dL Urine Glucose (UA) (NEGATIVE) mg/dL Urine Ketones (NEGATIVE) mg/dL Urine Occult Blood (NEGATIVE) Urine Nitrite (NEGATIVE) Urine Bilirubin (NEGATIVE) Urine Urobilinogen (NORMAL) E.U./dL Ur Leukocyte Esterase (NEGATIVE) Urine RBC (0-5) /HPF Urine WBC (0-3) /HPF Ur Squamous Epith Cells (<= Few) Urine Bacteria (None Seen) /HPF 01/28/18 01/28/18 01/28/18 Range/Units 16:49 16:49 11:51 WBC 13.7 H (4.8-10.8) x10^3/uL RBC 4.59 L (4.70-6.10) 10^6/uL Hgb 15.1 (14.0-18.0) g/dL Hct 43.3 (42.0-52.0) % MCV 94.4 H (80.0-94.0) fL MCH 32.9 H (27.0-31.0) pg MCHC 34.9 (32.0-36.0) g/dL RDW 13.0 (12.0-15.0) % Plt Count 244 (130-450) 10^3/uL MPV 6.8 L (7.4-11.4) fL Neut # (Auto) 12.6 H (1.5-6.6) 10^3/uL Lymph # (Auto) 0.4 L (1.5-3.5) 10^3/uL Worth # (Auto) 0.7 (0.0-1.0) 10^3/uL Eos # (Auto) 0.0 (0.0-0.7) 10^3/uL Baso # (Auto) 0.0 (0.0-0.1) 10^3/uL Absolute Nucleated RBC 0.00 x10^3/uL Band Neuts % (Manual) Not Reportable Abnorm Lymph % (Manual) Not Reportable Nucleated RBC % 0.0 /100WBC Neutrophils # (Manual) Not Reportable Lymphocytes # (Manual) Not Reportable Monocytes # (Manual) Not Reportable Eosinophils # (Manual) Not Reportable Basophils # (Manual) Not Reportable Differential Comment MANUAL=AUTO DIFF Manual Slide Review Indicated Platelet Estimate NORMAL (130-450,000) (NORMAL) Platelet Morphology NORMAL APPEARANCE (NORMAL) RBC Morph Micro Appear NORMAL APPEARANCE (NORMAL) ESR 1 (0-20) mm/Hr Sodium 133 L (135-145) mmol/L Potassium 3.2 L (3.5-5.0) mmol/L Chloride 98 L (101-111) mmol/L Carbon Dioxide 26 (21-32) mmol/L Anion Gap 9.0 (6-13) BUN 18 (6-20) mg/dL Creatinine 1.0 (0.6-1.2) mg/dL Estimated GFR (MDRD) 74 L (>89) Glucose 152 H (70-100) mg/dL Glycated Hemoglobin (4.6-6.2) % Estim Average Glucose (70-100) Lactic Acid (0.5-2.2) mmol/L Calcium 9.2 (8.5-10.3) mg/dL Magnesium (1.7-2.8) mg/dL Total Bilirubin (0.2-1.0) mg/dL GGT (8-55) IU/L AST (10-42) IU/L ALT (10-60) IU/L Alkaline Phosphatase (42-121) IU/L Troponin I (<0.49) ng/mL C-Reactive Protein (0-1.0) mg/dL Total Protein (6.7-8.2) g/dL Albumin (3.2-5.5) g/dL Globulin (2.1-4.2) g/dL Albumin/Globulin Ratio (1.0-2.2) Urine Color Urine Clarity (CLEAR) Urine pH (5.0-7.5) PH Ur Specific [place] (1.002-1.030) Urine Protein (NEGATIVE) mg/dL Urine Glucose (UA) (NEGATIVE) mg/dL Urine Ketones (NEGATIVE) mg/dL Urine Occult Blood (NEGATIVE) Urine Nitrite (NEGATIVE) Urine Bilirubin (NEGATIVE) Urine Urobilinogen (NORMAL) E.U./dL Ur Leukocyte Esterase (NEGATIVE) Urine RBC (0-5) /HPF Urine WBC (0-3) /HPF Ur Squamous Epith Cells (<= Few) Urine Bacteria (None Seen) /HPF 01/28/18 Range/Units 11:51 WBC 19.8 H (4.8-10.8) x10^3/uL RBC 4.85 (4.70-6.10) 10^6/uL Hgb 15.6 (14.0-18.0) g/dL Hct 45.9 (42.0-52.0) % MCV 94.7 H (80.0-94.0) fL MCH 32.2 H (27.0-31.0) pg MCHC 34.0 (32.0-36.0) g/dL RDW 13.2 (12.0-15.0) % Plt Count 268 (130-450) 10^3/uL MPV 7.4 (7.4-11.4) fL Neut # (Auto) 18.4 H (1.5-6.6) 10^3/uL Lymph # (Auto) 0.4 L (1.5-3.5) 10^3/uL Worth # (Auto) 0.9 (0.0-1.0) 10^3/uL Eos # (Auto) 0.0 (0.0-0.7) 10^3/uL Baso # (Auto) 0.0 (0.0-0.1) 10^3/uL Absolute Nucleated RBC 0.01 x10^3/uL Band Neuts % (Manual) Abnorm Lymph % (Manual) Nucleated RBC % 0.0 /100WBC Neutrophils # (Manual) Lymphocytes # (Manual) Monocytes # (Manual) Eosinophils # (Manual) Basophils # (Manual) Differential Comment Manual Slide Review Indicated Platelet Estimate (NORMAL) Platelet Morphology (NORMAL) RBC Morph Micro Appear (NORMAL) ESR (0-20) mm/Hr Sodium (135-145) mmol/L Potassium (3.5-5.0) mmol/L Chloride (101-111) mmol/L Carbon Dioxide (21-32) mmol/L Anion Gap (6-13) BUN (6-20) mg/dL Creatinine (0.6-1.2) mg/dL Estimated GFR (MDRD) (>89) Glucose (70-100) mg/dL Glycated Hemoglobin (4.6-6.2) % Estim Average Glucose (70-100) Lactic Acid (0.5-2.2) mmol/L Calcium (8.5-10.3) mg/dL Magnesium (1.7-2.8) mg/dL Total Bilirubin (0.2-1.0) mg/dL GGT (8-55) IU/L AST (10-42) IU/L ALT (10-60) IU/L Alkaline Phosphatase (42-121) IU/L Troponin I (<0.49) ng/mL C-Reactive Protein (0-1.0) mg/dL Total Protein (6.7-8.2) g/dL Albumin (3.2-5.5) g/dL Globulin (2.1-4.2) g/dL Albumin/Globulin Ratio (1.0-2.2) Urine Color Urine Clarity (CLEAR) Urine pH (5.0-7.5) PH Ur Specific [place] (1.002-1.030) Urine Protein (NEGATIVE) mg/dL Urine Glucose (UA) (NEGATIVE) mg/dL Urine Ketones (NEGATIVE) mg/dL Urine Occult Blood (NEGATIVE) Urine Nitrite (NEGATIVE) Urine Bilirubin (NEGATIVE) Urine Urobilinogen (NORMAL) E.U./dL Ur Leukocyte Esterase (NEGATIVE) Urine RBC (0-5) /HPF Urine WBC (0-3) /HPF Ur Squamous Epith Cells (<= Few) Urine Bacteria (None Seen) /HPF ABX Reporting Has patient been on IV antibiotics over the past 48 hours?: Yes Sepsis Event Note (H) - Evaluation Current Stage of Sepsis: Ruled out Assessment/Plan - Problem List (1) NSTEMI (non-ST elevated myocardial infarction) Impression: The patient was having mid-sternal chest pain on exam with inspiration that was non-radiating, diaphoresis. Overnight his troponins went from 0.04, 0.18, .022- and since these values have at least doubled, he has ruled in for acute OH. EKGs show a L BBB, x2 and unchanged from each other. An echocardiogram was done and preliminary results show a normal EF of 60%, no regional motion wall abnormalities and the murmur heard on exam was the aortic regurg. His last troponin remains flat at 0.16, and I have added one for the morning. 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 Plan: Continue tele, troponins in the AM. Avoid steroid or NSAID use during this acute phase. EKG, nitro, morphine, oxygen for any recurrence of acute chest pain for the remainder of his hospital stay. (2) Bilateral pneumonia Impression: X-ray confirms a bilateral (left greater than right) infiltrate located in the rajan-hilar region. He was started on Zosyn/Vanco IV yesterday, which should c ontinue. Plan: Continue IV treatment, obtain a sputum sample and continue respiratory care. (3) Incarcerated hernia Impression: The patient had a mishap with his dog Debbie, and consequently had an acute incarcerated hernia that was repaired by general surgery. This is healing nicely with no post-op complications so far. He has been told how to splint w hile coughing, and he admits to some soreness in his right groin since having surgery. Plan: Continue to monitor the surgical site and contact surgery for any concerns. (4) Hypertension Impression: The patient is prescribed lisinopril at home, which has been continued here. His blood pressure today is 139/87 with heart rates in the 80's. He remains on metoprolol. These may need to be adjusted based on ongoing HTN or tachycardia. Plan: Continue meds and monitor vital signs. Qualifiers: Hypertension type: essential hypertension Qualified Code(s): I10 - Essential (primary) hypertension (5) Tachycardia Impression: This symptom has resolved and the patient has been in the 80's today. Plan: Continue beta alex. (6) Marijuana dependence Impression: The patient admits to smoking marijuana several times per week, which I have advised him to stop this. Plan: Continue to encourage cessation. (7) Pulmonary hypertension Impression: The patient had an echo and preliminary results show an elevated RVSP at rest of 40 mmHg, so we should suggest a sleep study outpatient. This may be acute on chronic due to his pneumonia, and he states that his PCP thinks that he will need a sleep study. Plan: continue to treat PNA, and recommend follow up. (8) COPD (chronic obstructive pulmonary disease) Impression: The patient had been a life long smoker, and recently switched to marijuana. He is not prescribed any LABAs out patient, but these should be put on his discharge med list. Plan: continue to treat PNA, and monitor respiratory status.
[2018-01-29] MEDS ORDERED: VANCOMYCIN 1 GM VIAL ONE (08:50)
[2018-01-29] MEDS: VANCOMYCIN INJ 0.75 GM in SODIUM CHLORIDE 0.9% 250 ML IV SCH (08:59)
[2018-01-29] MEDS: TAMSULOSIN 0.4 MG CAPSULE PO SCH (09:00)
[2018-01-29] MEDS ORDERED: LISINOPRIL 5 MG TABLET PO SCH (09:00)
[2018-01-29] MEDS ORDERED: OXYBUTYNIN 5MG TABLET PO SCH (09:00)
[2018-01-29] MEDS: METOPROLOL SUCCINATE 25 MG TABLET PO SCH (09:13)
[2018-01-29] MEDS: OXYBUTYNIN 5MG TABLET PO SCH (09:17)
[2018-01-29] MEDS: ENOXAPARIN 40 MG/0.4 ML SYRINGE SUBQ SCH (11:50)
--- NOTE | 2018-01-29 11:55 | PROVIDER PROGRESS NOTE ---
Subjective - Prog Note Date Prog Note Date: 01/29/18 Prog Note Time: 11:51 - Subjective Pt reports feeling: Improved Subjective: 67 yo man pod 1 from an open right inguinal hernia repair with mesh for incarceration, with ischemic small bowel. Post-operatively, he developed substernal chest pain. Subsequent workup was positive for an acute UT. He also has clinical signs of pneumonia, which he has had in the past. Medicine is on board and transferred him to their service to further manage these conditions. From a surgical standpoint, he is recovering perfectly. He has minimal incisional pain and no abdominal pain. He is tolerating a full diet. Objective - Vital Signs/Intake & Output Vital Signs: Vital Signs x48h Temp Pulse Pulse Resp BP Pulse Ox 01/29/18 09:10 139/87 H 01/29/18 08:32 37.1 C 80 16 98 01/29/18 07:23 87 18 01/29/18 04:43 37.1 C 80 16 118/74 98 Intake & Output: Intake & Output 01/26/18 01/27/18 01/28/18 01/29/18 23:59 23:59 23:59 23:59 Intake Total 1250 2480.333 Output Total 675 1300 Balance 575 1180.333 - Objective General Appearance: positive: No acute distress Eyes Bilateral: positive: Normal inspection Respiratory: positive: Chest non-tender Cardiovascular: positive: Regular rate & rhythm Abdomen: positive: Non-tender Back: positive: Nml inspection Skin: positive: Color nml Extremities: positive: Non-tender Neurologic/Psychiatric: positive: Oriented x3 - Lab Results Fish Bones: 01/29/18 05:56 01/29/18 05:56 Other Labs: Lab Results x24hrs 01/29/18 01/29/18 01/29/18 Range/Units 05:56 05:56 05:56 WBC (4.8-10.8) x10^3/uL RBC (4.70-6.10) 10^6/uL Hgb (14.0-18.0) g/dL Hct (42.0-52.0) % MCV (80.0-94.0) fL MCH (27.0-31.0) pg MCHC (32.0-36.0) g/dL RDW (12.0-15.0) % Plt Count (130-450) 10^3/uL MPV (7.4-11.4) fL Neut # (Auto) (1.5-6.6) 10^3/uL Lymph # (Auto) (1.5-3.5) 10^3/uL [place] # (Auto) (0.0-1.0) 10^3/uL Eos # (Auto) (0.0-0.7) 10^3/uL Baso # (Auto) (0.0-0.1) 10^3/uL Absolute Nucleated RBC x10^3/uL Band Neuts % (Manual) Abnorm Lymph % (Manual) Nucleated RBC % /100WBC Neutrophils # (Manual) Lymphocytes # (Manual) Monocytes # (Manual) Eosinophils # (Manual) Basophils # (Manual) Differential Comment Manual Slide Review Platelet Estimate (NORMAL) Platelet Morphology (NORMAL) RBC Morph Micro Appear (NORMAL) ESR (0-20) mm/Hr Sodium 137 (135-145) mmol/L Potassium 4.1 (3.5-5.0) mmol/L Chloride 109 (101-111) mmol/L Carbon Dioxide 24 (21-32) mmol/L Anion Gap 4.0 L (6-13) BUN 26 H (6-20) mg/dL Creatinine 1.0 (0.6-1.2) mg/dL Estimated GFR (MDRD) 74 L (>89) Glucose 146 H (70-100) mg/dL Glycated Hemoglobin (4.6-6.2) % Estim Average Glucose (70-100) Lactic Acid 1.8 (0.5-2.2) mmol/L Calcium 8.3 L (8.5-10.3) mg/dL Magnesium 1.8 (1.7-2.8) mg/dL Total Bilirubin 1.0 (0.2-1.0) mg/dL GGT (8-55) IU/L AST 29 (10-42) IU/L ALT 13 (10-60) IU/L Alkaline Phosphatase 27 L (42-121) IU/L Troponin I 0.22 (<0.49) ng/mL C-Reactive Protein (0-1.0) mg/dL Total Protein 5.9 L (6.7-8.2) g/dL Albumin 3.4 (3.2-5.5) g/dL Globulin 2.5 (2.1-4.2) g/dL Albumin/Globulin Ratio 1.4 (1.0-2.2) Urine Color Urine Clarity (CLEAR) Urine pH (5.0-7.5) PH Ur Specific [place] (1.002-1.030) Urine Protein (NEGATIVE) mg/dL Urine Glucose (UA) (NEGATIVE) mg/dL Urine Ketones (NEGATIVE) mg/dL Urine Occult Blood (NEGATIVE) Urine Nitrite (NEGATIVE) Urine Bilirubin (NEGATIVE) Urine Urobilinogen (NORMAL) E.U./dL Ur Leukocyte Esterase (NEGATIVE) Urine RBC (0-5) /HPF Urine WBC (0-3) /HPF Ur Squamous Epith Cells (<= Few) Urine Bacteria (None Seen) /HPF 01/29/18 01/28/18 01/28/18 Range/Units 05:56 23:30 20:25 WBC 13.3 H (4.8-10.8) x10^3/uL RBC 3.85 L (4.70-6.10) 10^6/uL Hgb 12.6 L (14.0-18.0) g/dL Hct 36.9 L (42.0-52.0) % MCV 95.9 H (80.0-94.0) fL MCH 32.7 H (27.0-31.0) pg MCHC 34.1 (32.0-36.0) g/dL RDW 13.4 (12.0-15.0) % Plt Count 227 (130-450) 10^3/uL MPV 7.1 L (7.4-11.4) fL Neut # (Auto) 11.1 H (1.5-6.6) 10^3/uL Lymph # (Auto) 0.9 L (1.5-3.5) 10^3/uL [place] # (Auto) 1.3 H (0.0-1.0) 10^3/uL Eos # (Auto) 0.0 (0.0-0.7) 10^3/uL Baso # (Auto) 0.0 (0.0-0.1) 10^3/uL Absolute Nucleated RBC 0.00 x10^3/uL Band Neuts % (Manual) Abnorm Lymph % (Manual) Nucleated RBC % 0.0 /100WBC Neutrophils # (Manual) Lymphocytes # (Manual) Monocytes # (Manual) Eosinophils # (Manual) Basophils # (Manual) Differential Comment Manual Slide Review Platelet Estimate (NORMAL) Platelet Morphology (NORMAL) RBC Morph Micro Appear (NORMAL) ESR (0-20) mm/Hr Sodium (135-145) mmol/L Potassium (3.5-5.0) mmol/L Chloride (101-111) mmol/L Carbon Dioxide (21-32) mmol/L Anion Gap (6-13) BUN (6-20) mg/dL Creatinine (0.6-1.2) mg/dL Estimated GFR (MDRD) (>89) Glucose (70-100) mg/dL Glycated Hemoglobin (4.6-6.2) % Estim Average Glucose (70-100) Lactic Acid (0.5-2.2) mmol/L Calcium (8.5-10.3) mg/dL Magnesium (1.7-2.8) mg/dL Total Bilirubin (0.2-1.0) mg/dL GGT (8-55) IU/L AST (10-42) IU/L ALT (10-60) IU/L Alkaline Phosphatase (42-121) IU/L Troponin I 0.18 (<0.49) ng/mL C-Reactive Protein (0-1.0) mg/dL Total Protein (6.7-8.2) g/dL Albumin (3.2-5.5) g/dL Globulin (2.1-4.2) g/dL Albumin/Globulin Ratio (1.0-2.2) Urine Color YELLOW Urine Clarity CLEAR (CLEAR) Urine pH 6.0 (5.0-7.5) PH Ur Specific [place] 1.020 (1.002-1.030) Urine Protein NEGATIVE (NEGATIVE) mg/dL Urine Glucose (UA) 100 H (NEGATIVE) mg/dL Urine Ketones NEGATIVE (NEGATIVE) mg/dL Urine Occult Blood SMALL H (NEGATIVE) Urine Nitrite NEGATIVE (NEGATIVE) Urine Bilirubin NEGATIVE (NEGATIVE) Urine Urobilinogen 0.2 (NORMAL) (NORMAL) E.U./dL Ur Leukocyte Esterase NEGATIVE (NEGATIVE) Urine RBC 6-10 H (0-5) /HPF Urine WBC 4-5 (0-3) /HPF Ur Squamous Epith Cells NONE SEEN (<= Few) Urine Bacteria None Seen (None Seen) /HPF 01/28/18 01/28/18 01/28/18 Range/Units 16:49 16:49 16:49 WBC (4.8-10.8) x10^3/uL RBC (4.70-6.10) 10^6/uL Hgb (14.0-18.0) g/dL Hct (42.0-52.0) % MCV (80.0-94.0) fL MCH (27.0-31.0) pg MCHC (32.0-36.0) g/dL RDW (12.0-15.0) % Plt Count (130-450) 10^3/uL MPV (7.4-11.4) fL Neut # (Auto) (1.5-6.6) 10^3/uL Lymph # (Auto) (1.5-3.5) 10^3/uL [place] # (Auto) (0.0-1.0) 10^3/uL Eos # (Auto) (0.0-0.7) 10^3/uL Baso # (Auto) (0.0-0.1) 10^3/uL Absolute Nucleated RBC x10^3/uL Band Neuts % (Manual) Abnorm Lymph % (Manual) Nucleated RBC % /100WBC Neutrophils # (Manual) Lymphocytes # (Manual) Monocytes # (Manual) Eosinophils # (Manual) Basophils # (Manual) Differential Comment Manual Slide Review Platelet Estimate (NORMAL) Platelet Morphology (NORMAL) RBC Morph Micro Appear (NORMAL) ESR (0-20) mm/Hr Sodium (135-145) mmol/L Potassium (3.5-5.0) mmol/L Chloride (101-111) mmol/L Carbon Dioxide (21-32) mmol/L Anion Gap (6-13) BUN (6-20) mg/dL Creatinine (0.6-1.2) mg/dL Estimated GFR (MDRD) (>89) Glucose (70-100) mg/dL Glycated Hemoglobin 5.5 (4.6-6.2) % Estim Average Glucose 111 H (70-100) Lactic Acid 1.5 (0.5-2.2) mmol/L Calcium (8.5-10.3) mg/dL Magnesium (1.7-2.8) mg/dL Total Bilirubin (0.2-1.0) mg/dL GGT 9 (8-55) IU/L AST (10-42) IU/L ALT (10-60) IU/L Alkaline Phosphatase (42-121) IU/L Troponin I (<0.49) ng/mL C-Reactive Protein (0-1.0) mg/dL Total Protein (6.7-8.2) g/dL Albumin (3.2-5.5) g/dL Globulin (2.1-4.2) g/dL Albumin/Globulin Ratio (1.0-2.2) Urine Color Urine Clarity (CLEAR) Urine pH (5.0-7.5) PH Ur Specific [place] (1.002-1.030) Urine Protein (NEGATIVE) mg/dL Urine Glucose (UA) (NEGATIVE) mg/dL Urine Ketones (NEGATIVE) mg/dL Urine Occult Blood (NEGATIVE) Urine Nitrite (NEGATIVE) Urine Bilirubin (NEGATIVE) Urine Urobilinogen (NORMAL) E.U./dL Ur Leukocyte Esterase (NEGATIVE) Urine RBC (0-5) /HPF Urine WBC (0-3) /HPF Ur Squamous Epith Cells (<= Few) Urine Bacteria (None Seen) /HPF 01/28/18 01/28/18 01/28/18 Range/Units 16:49 16:49 16:49 WBC (4.8-10.8) x10^3/uL RBC (4.70-6.10) 10^6/uL Hgb (14.0-18.0) g/dL Hct (42.0-52.0) % MCV (80.0-94.0) fL MCH (27.0-31.0) pg MCHC (32.0-36.0) g/dL RDW (12.0-15.0) % Plt Count (130-450) 10^3/uL MPV (7.4-11.4) fL Neut # (Auto) (1.5-6.6) 10^3/uL Lymph # (Auto) (1.5-3.5) 10^3/uL [place] # (Auto) (0.0-1.0) 10^3/uL Eos # (Auto) (0.0-0.7) 10^3/uL Baso # (Auto) (0.0-0.1) 10^3/uL Absolute Nucleated RBC x10^3/uL Band Neuts % (Manual) Abnorm Lymph % (Manual) Nucleated RBC % /100WBC Neutrophils # (Manual) Lymphocytes # (Manual) Monocytes # (Manual) Eosinophils # (Manual) Basophils # (Manual) Differential Comment Manual Slide Review Platelet Estimate (NORMAL) Platelet Morphology (NORMAL) RBC Morph Micro Appear (NORMAL) ESR (0-20) mm/Hr Sodium 133 L (135-145) mmol/L Potassium 3.3 L (3.5-5.0) mmol/L Chloride 100 L (101-111) mmol/L Carbon Dioxide 24 (21-32) mmol/L Anion Gap 9.0 (6-13) BUN 22 H (6-20) mg/dL Creatinine 1.1 (0.6-1.2) mg/dL Estimated GFR (MDRD) 67 L (>89) Glucose 170 H (70-100) mg/dL Glycated Hemoglobin (4.6-6.2) % Estim Average Glucose (70-100) Lactic Acid (0.5-2.2) mmol/L Calcium 8.5 (8.5-10.3) mg/dL Magnesium 1.7 (1.7-2.8) mg/dL Total Bilirubin 1.1 H (0.2-1.0) mg/dL GGT (8-55) IU/L AST 26 (10-42) IU/L ALT 13 (10-60) IU/L Alkaline Phosphatase 40 L (42-121) IU/L Troponin I 0.04 (<0.49) ng/mL C-Reactive Protein < 1.0 (0-1.0) mg/dL Total Protein 7.1 (6.7-8.2) g/dL Albumin 4.1 (3.2-5.5) g/dL Globulin 3.0 (2.1-4.2) g/dL Albumin/Globulin Ratio 1.4 (1.0-2.2) Urine Color Urine Clarity (CLEAR) Urine pH (5.0-7.5) PH Ur Specific [place] (1.002-1.030) Urine Protein (NEGATIVE) mg/dL Urine Glucose (UA) (NEGATIVE) mg/dL Urine Ketones (NEGATIVE) mg/dL Urine Occult Blood (NEGATIVE) Urine Nitrite (NEGATIVE) Urine Bilirubin (NEGATIVE) Urine Urobilinogen (NORMAL) E.U./dL Ur Leukocyte Esterase (NEGATIVE) Urine RBC (0-5) /HPF Urine WBC (0-3) /HPF Ur Squamous Epith Cells (<= Few) Urine Bacteria (None Seen) /HPF 01/28/18 01/28/18 01/28/18 Range/Units 16:49 16:49 11:51 WBC 13.7 H (4.8-10.8) x10^3/uL RBC 4.59 L (4.70-6.10) 10^6/uL Hgb 15.1 (14.0-18.0) g/dL Hct 43.3 (42.0-52.0) % MCV 94.4 H (80.0-94.0) fL MCH 32.9 H (27.0-31.0) pg MCHC 34.9 (32.0-36.0) g/dL RDW 13.0 (12.0-15.0) % Plt Count 244 (130-450) 10^3/uL MPV 6.8 L (7.4-11.4) fL Neut # (Auto) 12.6 H (1.5-6.6) 10^3/uL Lymph # (Auto) 0.4 L (1.5-3.5) 10^3/uL [place] # (Auto) 0.7 (0.0-1.0) 10^3/uL Eos # (Auto) 0.0 (0.0-0.7) 10^3/uL Baso # (Auto) 0.0 (0.0-0.1) 10^3/uL Absolute Nucleated RBC 0.00 x10^3/uL Band Neuts % (Manual) Not Reportable Abnorm Lymph % (Manual) Not Reportable Nucleated RBC % 0.0 /100WBC Neutrophils # (Manual) Not Reportable Lymphocytes # (Manual) Not Reportable Monocytes # (Manual) Not Reportable Eosinophils # (Manual) Not Reportable Basophils # (Manual) Not Reportable Differential Comment MANUAL=AUTO DIFF Manual Slide Review Indicated Platelet Estimate NORMAL (130-450,000) (NORMAL) Platelet Morphology NORMAL APPEARANCE (NORMAL) RBC Morph Micro Appear NORMAL APPEARANCE (NORMAL) ESR 1 (0-20) mm/Hr Sodium 133 L (135-145) mmol/L Potassium 3.2 L (3.5-5.0) mmol/L Chloride 98 L (101-111) mmol/L Carbon Dioxide 26 (21-32) mmol/L Anion Gap 9.0 (6-13) BUN 18 (6-20) mg/dL Creatinine 1.0 (0.6-1.2) mg/dL Estimated GFR (MDRD) 74 L (>89) Glucose 152 H (70-100) mg/dL Glycated Hemoglobin (4.6-6.2) % Estim Average Glucose (70-100) Lactic Acid (0.5-2.2) mmol/L Calcium 9.2 (8.5-10.3) mg/dL Magnesium (1.7-2.8) mg/dL Total Bilirubin (0.2-1.0) mg/dL GGT (8-55) IU/L AST (10-42) IU/L ALT (10-60) IU/L Alkaline Phosphatase (42-121) IU/L Troponin I (<0.49) ng/mL C-Reactive Protein (0-1.0) mg/dL Total Protein (6.7-8.2) g/dL Albumin (3.2-5.5) g/dL Globulin (2.1-4.2) g/dL Albumin/Globulin Ratio (1.0-2.2) Urine Color Urine Clarity (CLEAR) Urine pH (5.0-7.5) PH Ur Specific [place] (1.002-1.030) Urine Protein (NEGATIVE) mg/dL Urine Glucose (UA) (NEGATIVE) mg/dL Urine Ketones (NEGATIVE) mg/dL Urine Occult Blood (NEGATIVE) Urine Nitrite (NEGATIVE) Urine Bilirubin (NEGATIVE) Urine Urobilinogen (NORMAL) E.U./dL Ur Leukocyte Esterase (NEGATIVE) Urine RBC (0-5) /HPF Urine WBC (0-3) /HPF Ur Squamous Epith Cells (<= Few) Urine Bacteria (None Seen) /HPF 01/28/18 Range/Units 11:51 WBC 19.8 H (4.8-10.8) x10^3/uL RBC 4.85 (4.70-6.10) 10^6/uL Hgb 15.6 (14.0-18.0) g/dL Hct 45.9 (42.0-52.0) % MCV 94.7 H (80.0-94.0) fL MCH 32.2 H (27.0-31.0) pg MCHC 34.0 (32.0-36.0) g/dL RDW 13.2 (12.0-15.0) % Plt Count 268 (130-450) 10^3/uL MPV 7.4 (7.4-11.4) fL Neut # (Auto) 18.4 H (1.5-6.6) 10^3/uL Lymph # (Auto) 0.4 L (1.5-3.5) 10^3/uL [place] # (Auto) 0.9 (0.0-1.0) 10^3/uL Eos # (Auto) 0.0 (0.0-0.7) 10^3/uL Baso # (Auto) 0.0 (0.0-0.1) 10^3/uL Absolute Nucleated RBC 0.01 x10^3/uL Band Neuts % (Manual) Abnorm Lymph % (Manual) Nucleated RBC % 0.0 /100WBC Neutrophils # (Manual) Lymphocytes # (Manual) Monocytes # (Manual) Eosinophils # (Manual) Basophils # (Manual) Differential Comment Manual Slide Review Indicated Platelet Estimate (NORMAL) Platelet Morphology (NORMAL) RBC Morph Micro Appear (NORMAL) ESR (0-20) mm/Hr Sodium (135-145) mmol/L Potassium (3.5-5.0) mmol/L Chloride (101-111) mmol/L Carbon Dioxide (21-32) mmol/L Anion Gap (6-13) BUN (6-20) mg/dL Creatinine (0.6-1.2) mg/dL Estimated GFR (MDRD) (>89) Glucose (70-100) mg/dL Glycated Hemoglobin (4.6-6.2) % Estim Average Glucose (70-100) Lactic Acid (0.5-2.2) mmol/L Calcium (8.5-10.3) mg/dL Magnesium (1.7-2.8) mg/dL Total Bilirubin (0.2-1.0) mg/dL GGT (8-55) IU/L AST (10-42) IU/L ALT (10-60) IU/L Alkaline Phosphatase (42-121) IU/L Troponin I (<0.49) ng/mL C-Reactive Protein (0-1.0) mg/dL Total Protein (6.7-8.2) g/dL Albumin (3.2-5.5) g/dL Globulin (2.1-4.2) g/dL Albumin/Globulin Ratio (1.0-2.2) Urine Color Urine Clarity (CLEAR) Urine pH (5.0-7.5) PH Ur Specific [place] (1.002-1.030) Urine Protein (NEGATIVE) mg/dL Urine Glucose (UA) (NEGATIVE) mg/dL Urine Ketones (NEGATIVE) mg/dL Urine Occult Blood (NEGATIVE) Urine Nitrite (NEGATIVE) Urine Bilirubin (NEGATIVE) Urine Urobilinogen (NORMAL) E.U./dL Ur Leukocyte Esterase (NEGATIVE) Urine RBC (0-5) /HPF Urine WBC (0-3) /HPF Ur Squamous Epith Cells (<= Few) Urine Bacteria (None Seen) /HPF Assessment/Plan - Problem List (1) Incarcerated hernia Impression: He has no sign of continued or worsening bowel ischemia as he is now tolerating a full diet without abdominal pain. Additionally his WBC is down from 19 pre-op to 13 today. He has no sign of hernia recurrence despite his coughing fits related to his pneumonia which he states are now improved. His incision also shows no sign of disruption or infection. He will remain in the hospital for treatment of his acute medical issues.
[2018-01-29] MEDS: guaiFENesin/CODEINE 5 ML UDC PO PRN (16:44)
[2018-01-29] MEDS ORDERED: NITROGLYCERIN SL 0.4 MG TABLET SL PRN (18:58)
[2018-01-29] MEDS ORDERED: ATORVASTATIN 40 MG TABLET PO SCH (21:00)
[2018-01-29] MEDS: FINASTERIDE 5 MG TABLET PO SCH (21:11)
[2018-01-29] MEDS: ATORVASTATIN 40 MG TABLET PO SCH (21:11)
[2018-01-29] MEDS: VANCOMYCIN INJ 1 GM in SODIUM CHLORIDE 0.9% 250 ML IV SCH (21:39)
[2018-01-30] MEDS: SODIUM CHLORIDE FLUSH 0.9% 10 ML SYRINGE IVP SCH ×3 (02:08→18:01)
[2018-01-30] MEDS: PIPERACILLIN/TAZOBACTAM 3.375 GM in SODIUM CHLORIDE 0.9% MINIBAG 100 ML IV SCH ×4 (02:09→20:05)
[2018-01-30] MEDS: guaiFENesin/CODEINE 5 ML UDC PO PRN (04:23)
[2018-01-30] MEDS: D5.45NS W/20 MEQ KCL 1,000 ML IV SCH ×2 (05:11→20:06)
[2018-01-30 05:53] LABS: BASOPHILS % (AUTO) 0.3 %; EOSINOPHILS % (AUTO) 0.3 %; HGB - HEMOGLOBIN 11.6 g/dL (14.0-18.0); LYMPHOCYTES # (AUTO) 0.9 10^3/uL (1.5-3.5); LYMPHOCYTES % (AUTO) 9.2 %; MEAN CORPUSCULAR HGB CONC 34.5 g/dL (32.0-36.0); MEAN CORPUSCULAR VOLUME 95.8 fL (80.0-94.0); MEAN PLATELET VOLUME 7.1 fL (7.4-11.4); MONOCYTES # (AUTO) 0.9 10^3/uL (0.0-1.0); MONOCYTES % (AUTO) 8.9 %; NEUTROPHILS # (AUTO) 8.3 10^3/uL (1.5-6.6); NEUTROPHILS % (AUTO) 81.3 %; PLT - PLATELET COUNT 197 10^3/uL (130-450); RED BLOOD COUNT 3.52 10^6/uL (4.70-6.10); RED CELL DISTRIBUTION WIDTH 13.1 % (12.0-15.0); WHITE BLOOD COUNT 10.2 x10^3/uL (4.8-10.8)
[2018-01-30 06:05] LABS: ALBUMIN 3.4 g/dL (3.2-5.5); ALBUMIN/GLOBULIN RATIO 1.4 (1.0-2.2); BILIRUBIN,TOTAL 0.9 mg/dL (0.2-1.0); CALCIUM 8.3 mg/dL (8.5-10.3); TOTAL PROTEIN 5.8 g/dL (6.7-8.2)
[2018-01-30] MEDS: TAMSULOSIN 0.4 MG CAPSULE PO SCH (08:07)
[2018-01-30] MEDS: ASPIRIN EC 325 MG TABLET PO SCH (08:07)
[2018-01-30] MEDS: LISINOPRIL 5 MG TABLET PO SCH (08:07)
[2018-01-30] MEDS: METOPROLOL SUCCINATE 25 MG TABLET PO SCH (08:07)
[2018-01-30] MEDS: OXYBUTYNIN 5MG TABLET PO SCH (08:07)
--- NOTE | 2018-01-30 09:20 | PROVIDER PROGRESS NOTE ---
Subjective - Prog Note Date Prog Note Date: 01/30/18 Prog Note Time: 09:17 - Subjective Pt reports feeling: Improved (Ambulating, tolerating diet, having BMs, no pain) Objective - Vital Signs/Intake & Output Vital Signs: Vital Signs x48h Temp Pulse Pulse Resp BP Pulse Ox 01/30/18 08:06 37.0 C 81 18 132/85 H 95 01/30/18 07:50 93 16 01/30/18 04:17 36.9 C 76 18 124/78 97 Intake & Output: Intake & Output 01/27/18 01/28/18 01/29/18 01/30/18 23:59 23:59 23:59 23:59 Intake Total 1250 5780.333 1495 Output Total 675 3665 1400 Balance 575 2115.333 95 - Objective General Appearance: positive: No acute distress Eyes Bilateral: positive: Normal inspection ENT: positive: ENT inspection nml Neck: positive: Nml inspection Respiratory: positive: Chest non-tender Cardiovascular: positive: Regular rate & rhythm Abdomen: positive: Non-tender Back: positive: Nml inspection Skin: positive: Color nml Extremities: positive: Non-tender Neurologic/Psychiatric: positive: Oriented x3 - Lab Results Fish Bones: 01/30/18 05:34 01/30/18 05:34 Other Labs: Lab Results x24hrs 01/30/18 01/30/18 01/30/18 Range/Units 05:34 05:34 05:34 WBC 10.2 (4.8-10.8) x10^3/uL RBC 3.52 L (4.70-6.10) 10^6/uL Hgb 11.6 L (14.0-18.0) g/dL Hct 33.7 L (42.0-52.0) % MCV 95.8 H (80.0-94.0) fL MCH 33.0 H (27.0-31.0) pg MCHC 34.5 (32.0-36.0) g/dL RDW 13.1 (12.0-15.0) % Plt Count 197 (130-450) 10^3/uL MPV 7.1 L (7.4-11.4) fL Neut # (Auto) 8.3 H (1.5-6.6) 10^3/uL Lymph # (Auto) 0.9 L (1.5-3.5) 10^3/uL [place] # (Auto) 0.9 (0.0-1.0) 10^3/uL Eos # (Auto) 0.0 (0.0-0.7) 10^3/uL Baso # (Auto) 0.0 (0.0-0.1) 10^3/uL Absolute Nucleated RBC 0.00 x10^3/uL Nucleated RBC % 0.0 /100WBC Sodium 136 (135-145) mmol/L Potassium 3.7 (3.5-5.0) mmol/L Chloride 106 (101-111) mmol/L Carbon Dioxide 26 (21-32) mmol/L Anion Gap 4.0 L (6-13) BUN 16 (6-20) mg/dL Creatinine 1.0 (0.6-1.2) mg/dL Estimated GFR (MDRD) 74 L (>89) Glucose 143 H (70-100) mg/dL Calcium 8.3 L (8.5-10.3) mg/dL Total Bilirubin 0.9 (0.2-1.0) mg/dL AST 22 (10-42) IU/L ALT 13 (10-60) IU/L Alkaline Phosphatase 26 L (42-121) IU/L Troponin I 0.09 (<0.49) ng/mL Total Protein 5.8 L (6.7-8.2) g/dL Albumin 3.4 (3.2-5.5) g/dL Globulin 2.4 (2.1-4.2) g/dL Albumin/Globulin Ratio 1.4 (1.0-2.2) 01/29/18 01/29/18 Range/Units 21:25 15:30 WBC (4.8-10.8) x10^3/uL RBC (4.70-6.10) 10^6/uL Hgb (14.0-18.0) g/dL Hct (42.0-52.0) % MCV (80.0-94.0) fL MCH (27.0-31.0) pg MCHC (32.0-36.0) g/dL RDW (12.0-15.0) % Plt Count (130-450) 10^3/uL MPV (7.4-11.4) fL Neut # (Auto) (1.5-6.6) 10^3/uL Lymph # (Auto) (1.5-3.5) 10^3/uL [place] # (Auto) (0.0-1.0) 10^3/uL Eos # (Auto) (0.0-0.7) 10^3/uL Baso # (Auto) (0.0-0.1) 10^3/uL Absolute Nucleated RBC x10^3/uL Nucleated RBC % /100WBC Sodium (135-145) mmol/L Potassium (3.5-5.0) mmol/L Chloride (101-111) mmol/L Carbon Dioxide (21-32) mmol/L Anion Gap (6-13) BUN (6-20) mg/dL Creatinine (0.6-1.2) mg/dL Estimated GFR (MDRD) (>89) Glucose (70-100) mg/dL Calcium (8.5-10.3) mg/dL Total Bilirubin (0.2-1.0) mg/dL AST (10-42) IU/L ALT (10-60) IU/L Alkaline Phosphatase (42-121) IU/L Troponin I 0.10 0.15 (<0.49) ng/mL Total Protein (6.7-8.2) g/dL Albumin (3.2-5.5) g/dL Globulin (2.1-4.2) g/dL Albumin/Globulin Ratio (1.0-2.2) Sepsis Event Note (H) - Evaluation Current Stage of Sepsis: Ruled out Assessment/Plan - Problem List (1) Incarcerated hernia Impression: Pt has no sign of recurrence or infection. No sign of residual bowel ischemia or damage. Will continue to follow while he is in the hospital for continued medical management.
[2018-01-30 09:57] LABS: VANCOMYCIN,TROUGH 10.2 ug/mL (10.0-20.0)
[2018-01-30] MEDS: VANCOMYCIN INJ 1 GM in SODIUM CHLORIDE 0.9% 250 ML IV SCH ×2 (10:25→22:39)
--- NOTE | 2018-01-30 12:40 | PROVIDER PROGRESS NOTE ---
Subjective - Prog Note Date Prog Note Date: 01/30/18 - Subjective Pt reports feeling: Improved Subjective: Pt state he feel better. Pt report some pain at his surgery site when he cough. pt denies fever, chill, chest pain, palpitation, shortness of breath. We were consulted by surgeon. Pt still has slight elevated WBC. pt may possibly be d/c on tomorrow. Current Medications - Current Medications Current Medications: Active Medications Hydrocodone Bitart/Acetaminophen ([place] 5/325) 1 tab PO Q4HR PRN PRN Reason: PAIN Last Admin: 01/29/18 21:17 Dose: 1 tab Alprazolam (Xanax) 0.5 mg PO DAILY PRN PRN Reason: Anxiety Aspirin (Ecotrin) 325 mg PO DAILY [facility] Last Admin: 01/30/18 08:07 Dose: 325 mg Atorvastatin Calcium (Lipitor) 80 mg PO QPM NARAYAN Last Admin: 01/29/18 21:11 Dose: 80 mg Finasteride (Proscar) 5 mg PO QPM [facility] Last Admin: 01/29/18 21:11 Dose: 5 mg Guaifenesin/Codeine Phosphate (Robitussin Ac) 5 ml PO Q6HR PRN PRN Reason: Cough Last Admin: 01/30/18 04:23 Dose: 5 ml Potassium Chloride/Dextrose/Sod Cl (D5.45ns W/20 Meq Kcl) 1,000 mls @ 100 mls/hr IV .Q10H [facility] Last Infusion: 01/30/18 11:55 Dose: 100 mls/hr Piperacillin Sod/Tazobactam (Sod 3.375 gm/ Sodium Chloride) 100 mls @ 200 mls/hr IV Q6H [facility] Last Infusion: 01/30/18 08:37 Dose: Infused Vancomycin HCl 1 gm/ Sodium (Chloride) 250 mls @ 167 mls/hr IV Q12H [facility] Last Infusion: 01/30/18 11:55 Dose: Infused Levalbuterol HCl (Xopenex) 1.25 mg INH RTQ4H PRN PRN Reason: SHORTNESS OF AIR/WHEEZING Lisinopril (Zestril) 5 mg PO DAILY [facility] Last Admin: 01/30/18 08:07 Dose: 5 mg Metoprolol Succinate (Toprol Xl) 25 mg PO DAILY [facility] Last Admin: 01/30/18 08:07 Dose: 25 mg Morphine Sulfate (Morphine) 2 mg IVP Q2H PRN PRN Reason: Severe Pain Nitroglycerin (Nitrostat) 0.4 mg SL Q5MIN PRN PRN Reason: Chest Pain Oxybutynin Chloride (Ditropan) 10 mg PO DAILY [facility] Last Admin: 01/30/18 08:07 Dose: 10 mg Sodium Chloride (Normal Saline Flush 0.9%) 10 ml IVP PRN PRN PRN Reason: NEEDED PER PROVIDER ORDERS Last Admin: 01/28/18 21:44 Dose: 10 ml Sodium Chloride (Normal Saline Flush 0.9%) 10 ml IVP 0100,0900,1700 [facility] Last Admin: 01/30/18 07:30 Dose: Not Given Tamsulosin HCl (Flomax) 0.4 mg PO DAILY [facility] Last Admin: 01/30/18 08:07 Dose: 0.4 mg Alprazolam [Xanax] 0.5 mg PO Q8H PRN 11/07/12 Cholecalciferol (Vitamin D3) [Vitamin D] 2,000 unit PO DAILY 11/07/12 Fenofibric Acid (Choline) [Trilipix] 135 mg PO DAILY 11/07/12 Lisinopril [Zestril] 5 mg PO DAILY 11/07/12 Tamsulosin [Flomax] 0.4 mg PO QPM 11/07/12 Finasteride 5 mg PO QPM 01/28/18 Oxybutynin Chloride [Ditropan Xl] 10 mg PO QPM 01/28/18 Objective - Vital Signs/Intake & Output Reviewed Vital Signs: Yes Vital Signs: Vital Signs x48h Temp Pulse Pulse Resp BP Pulse Ox 01/30/18 08:06 37.0 C 81 18 132/85 H 95 01/30/18 07:50 93 16 Intake & Output: Intake & Output 01/27/18 01/28/18 01/29/18 01/30/18 23:59 23:59 23:59 23:59 Intake Total 1250 5780.333 2165 Output Total 675 3665 1400 Balance 575 2115.333 765 - Objective General Appearance: positive: No acute distress, Alert. negative: Lethargic Eyes Bilateral: positive: Normal inspection, PERRL, No lid inflammation, Conjunctivae nml ENT: positive: ENT inspection nml, Pharynx nml, No signs of dehydration. negative: Purulent nasal drainage, Pharyngeal erythema, Oral lesions Neck: positive: Nml inspection, Thyroid nml, No JVD, Trachea midline. negative: Thyromegaly, Lymphadenopathy (R), Lymphadenopathy (L), Stiff neck, Swelling/bruising, Tracheal deviation Respiratory: positive: Chest non-tender, No respiratory distress, Breath sounds nml. negative: Wheezes, Rales, Rhonchi Cardiovascular: positive: Regular rate & rhythm, No murmur, No gallop. negative: Irregularly irregular, Extrasystoles, Tachycardia, Bradycardia, JVD present, Systolic murmur, Diastolic murmur Peripheral Pulses: 2+ Radial (R), 2+ Radial (L), 2+ Dorsalis pedis (R), 2+ Dorsalis pedis (L) Abdomen: positive: Non-tender, No organomegaly, Nml bowel sounds, No distention. negative: Tenderness, Guarding, Rebound Back: positive: Nml inspection. negative: CVA tenderness (R), CVA tenderness (L) Skin: positive: Color nml, No rash, Warm, Dry. negative: Cyanosis, Diaphoresis, Pallor, Skin rash Extremities: positive: Non-tender, Full ROM, Nml appearance. negative: Calf tenderness, Joint swelling, Paula's sign/cords Neurologic/Psychiatric: positive: Oriented x3, Motor nml, Sensation nml, Mood/affect nml. negative: Weakness, Sensory loss, Facial droop, Slurred/abnml speech, Depressed mood/affect - Lab Results Fish Bones: 01/30/18 05:34 01/30/18 05:34 Other Labs: Lab Results x24hrs 01/30/18 01/30/18 01/30/18 Range/Units 09:38 05:34 05:34 WBC (4.8-10.8) x10^3/uL RBC (4.70-6.10) 10^6/uL Hgb (14.0-18.0) g/dL Hct (42.0-52.0) % MCV (80.0-94.0) fL MCH (27.0-31.0) pg MCHC (32.0-36.0) g/dL RDW (12.0-15.0) % Plt Count (130-450) 10^3/uL MPV (7.4-11.4) fL Neut # (Auto) (1.5-6.6) 10^3/uL Lymph # (Auto) (1.5-3.5) 10^3/uL [place]ata[place] # (Auto) (0.0-1.0) 10^3/uL Eos # (Auto) (0.0-0.7) 10^3/uL Baso # (Auto) (0.0-0.1) 10^3/uL Absolute Nucleated RBC x10^3/uL Nucleated RBC % /100WBC Sodium 136 (135-145) mmol/L Potassium 3.7 (3.5-5.0) mmol/L Chloride 106 (101-111) mmol/L Carbon Dioxide 26 (21-32) mmol/L Anion Gap 4.0 L (6-13) BUN 16 (6-20) mg/dL Creatinine 1.0 (0.6-1.2) mg/dL Estimated GFR (MDRD) 74 L (>89) Glucose 143 H (70-100) mg/dL Calcium 8.3 L (8.5-10.3) mg/dL Total Bilirubin 0.9 (0.2-1.0) mg/dL AST 22 (10-42) IU/L ALT 13 (10-60) IU/L Alkaline Phosphatase 26 L (42-121) IU/L Troponin I 0.09 (<0.49) ng/mL Total Protein 5.8 L (6.7-8.2) g/dL Albumin 3.4 (3.2-5.5) g/dL Globulin 2.4 (2.1-4.2) g/dL Albumin/Globulin Ratio 1.4 (1.0-2.2) Last Dose Date 01/29/18 Last Dose Time 2343 Vancomycin Trough 10.2 (10.0-20.0) ug/mL 01/30/18 01/29/18 01/29/18 Range/Units 05:34 21:25 15:30 WBC 10.2 (4.8-10.8) x10^3/uL RBC 3.52 L (4.70-6.10) 10^6/uL Hgb 11.6 L (14.0-18.0) g/dL Hct 33.7 L (42.0-52.0) % MCV 95.8 H (80.0-94.0) fL MCH 33.0 H (27.0-31.0) pg MCHC 34.5 (32.0-36.0) g/dL RDW 13.1 (12.0-15.0) % Plt Count 197 (130-450) 10^3/uL MPV 7.1 L (7.4-11.4) fL Neut # (Auto) 8.3 H (1.5-6.6) 10^3/uL Lymph # (Auto) 0.9 L (1.5-3.5) 10^3/uL [place] # (Auto) 0.9 (0.0-1.0) 10^3/uL Eos # (Auto) 0.0 (0.0-0.7) 10^3/uL Baso # (Auto) 0.0 (0.0-0.1) 10^3/uL Absolute Nucleated RBC 0.00 x10^3/uL Nucleated RBC % 0.0 /100WBC Sodium (135-145) mmol/L Potassium (3.5-5.0) mmol/L Chloride (101-111) mmol/L Carbon Dioxide (21-32) mmol/L Anion Gap (6-13) BUN (6-20) mg/dL Creatinine (0.6-1.2) mg/dL Estimated GFR (MDRD) (>89) Glucose (70-100) mg/dL Calcium (8.5-10.3) mg/dL Total Bilirubin (0.2-1.0) mg/dL AST (10-42) IU/L ALT (10-60) IU/L Alkaline Phosphatase (42-121) IU/L Troponin I 0.10 0.15 (<0.49) ng/mL Total Protein (6.7-8.2) g/dL Albumin (3.2-5.5) g/dL Globulin (2.1-4.2) g/dL Albumin/Globulin Ratio (1.0-2.2) Last Dose Date Last Dose Time Vancomycin Trough (10.0-20.0) ug/mL ABX Reporting Has patient been on IV antibiotics over the past 48 hours?: Yes Sepsis Event Note (H) - Evaluation Current Stage of Sepsis: Ruled out Assessment/Plan - Problem List (1) NSTEMI (non-ST elevated myocardial infarction) Impression: (1) NSTEMI (non-ST elevated myocardial infarction) pt denies chest pain, did not present any cardiac distress. His last troponin was 0.09, gradually down. continue Aspirin 325 mg daily, Atorvostatin 80mg daily x1 month, Metoprolol succinate 25mg PO daily, Lisinopril 5 mg PO daily, PRN nitro and Morphine. Continue tele, troponins in the AM. (2) Bilateral pneumonia WBC is down to 10.2. 95% sat on room air continue antibiotics Zosyn and Vancomycin (3) Incarcerated hernia follow up surgeon, Continue to monitor the surgical site (4) Hypertension stable, continue home meds (5) Tachycardia Impression: resolved. (6) Marijuana dependence encourage cessation. (7) COPD (chronic obstructive pulmonary disease) life long smoker, and recently switched to marijuana. stable, continue INH and Duoneb treatment PRN
[2018-01-30] MEDS: HYDROcod/ACETAM 5/325 MG TABLET PO PRN ×2 (18:32→22:39)
[2018-01-30] MEDS: FINASTERIDE 5 MG TABLET PO SCH (20:06)
[2018-01-30] MEDS: ATORVASTATIN 40 MG TABLET PO SCH (20:06)
[2018-01-31] MEDS: PIPERACILLIN/TAZOBACTAM 3.375 GM in SODIUM CHLORIDE 0.9% MINIBAG 100 ML IV SCH ×3 (02:13→13:41)
[2018-01-31] MEDS: SODIUM CHLORIDE FLUSH 0.9% 10 ML SYRINGE IVP SCH ×2 (04:29→08:09)
[2018-01-31] MEDS: TAMSULOSIN 0.4 MG CAPSULE PO SCH (08:08)
[2018-01-31] MEDS: ASPIRIN EC 325 MG TABLET PO SCH (08:08)
[2018-01-31] MEDS: LISINOPRIL 5 MG TABLET PO SCH (08:08)
[2018-01-31] MEDS: OXYBUTYNIN 5MG TABLET PO SCH (08:08)
[2018-01-31] MEDS: METOPROLOL SUCCINATE 25 MG TABLET PO SCH (08:08)
[2018-01-31] MEDS: D5.45NS W/20 MEQ KCL 1,000 ML IV SCH (08:09)
[2018-01-31] MEDS: HYDROcod/ACETAM 5/325 MG TABLET PO PRN (08:18)
[2018-01-31] MEDS: guaiFENesin/CODEINE 5 ML UDC PO PRN (08:18)
[2018-01-31 08:33] LABS: BASOPHILS # (AUTO) 0.1 10^3/uL (0.0-0.1); BASOPHILS % (AUTO) 0.5 %; EOSINOPHILS # (AUTO) 0.2 10^3/uL (0.0-0.7); EOSINOPHILS % (AUTO) 1.7 %; HGB - HEMOGLOBIN 11.5 g/dL (14.0-18.0); LYMPHOCYTES # (AUTO) 1.2 10^3/uL (1.5-3.5); LYMPHOCYTES % (AUTO) 12.5 %; MEAN CORPUSCULAR HEMOGLOBIN 33.2 pg (27.0-31.0); MEAN CORPUSCULAR VOLUME 94.7 fL (80.0-94.0); MEAN PLATELET VOLUME 6.9 fL (7.4-11.4); MONOCYTES # (AUTO) 0.8 10^3/uL (0.0-1.0); MONOCYTES % (AUTO) 8.6 %; NEUTROPHILS # (AUTO) 7.6 10^3/uL (1.5-6.6); NEUTROPHILS % (AUTO) 76.7 %; PLT - PLATELET COUNT 205 10^3/uL (130-450); RED BLOOD COUNT 3.46 10^6/uL (4.70-6.10); RED CELL DISTRIBUTION WIDTH 12.9 % (12.0-15.0); WHITE BLOOD COUNT 9.9 x10^3/uL (4.8-10.8)
[2018-01-31 08:47] LABS: ALBUMIN 3.6 g/dL (3.2-5.5); ALBUMIN/GLOBULIN RATIO 1.3 (1.0-2.2); BILIRUBIN,TOTAL 0.7 mg/dL (0.2-1.0); CALCIUM 8.4 mg/dL (8.5-10.3); CREATININE 0.9 mg/dL (0.6-1.2); TOTAL PROTEIN 6.3 g/dL (6.7-8.2)
[2018-01-31] MEDS: VANCOMYCIN INJ 1 GM in SODIUM CHLORIDE 0.9% 250 ML IV SCH (10:28)
[2018-01-31 11:58] VITALS: BP 141/75
--- NOTE | 2018-01-31 13:57 | DISCHARGE SUMMARY ---
"Discharge Summary Admit Date: 01/28/18 Discharge Date: 01/31/18 Discharging Provider: felipe Code Status: Attempt Resuscitation Condition at Discharge: Good Discharge Disposition: 01 Home, Self Care - DIAGNOSES Admission Diagnoses: incarcerated inguinal hernia acute myocardial ischemia pneumonia Discharge Diagnoses with Status of Each Condition: stable - HPI History of Present Illness: 67 yo man presented with an incarcerated right inguinal hernia. This was repaired in the OR. Subsequently, he developed chest pain, SOB, and cough. He was found to have a NSTEMI and pneumoina. His troponins corrected over the next few days and his SOB resolved. His hernia contained ischemic bowel, but he was tolerating a full diet with normal bowel movements without abdominal pain at discharge. - CONSULTS | PROCEDURES Consultations: hospitalist - HOSPITAL COURSE Hospital Course: 67 yo man presented with an incarcerated right inguinal hernia. This was repaired in the OR. Subsequently, he developed chest pain, SOB, and cough. He was found to have a NSTEMI and pneumoina. His troponins corrected over the next few days and his SOB resolved. His hernia contained ischemic bowel, but he was tolerating a full diet with normal bowel movements without abdominal pain at discharge. - ALLERGIES Allergies/Adverse Reactions: Allergies Allergy/AdvReac Type Severity Reaction Status Date / Time No Known Drug Allergies Allergy Verified 04/16/15 11:02 - MEDICATIONS Home Medications: Ambulatory Orders Medication Instructions Recorded Confirmed Alprazolam [Xanax] 0.5 mg PO Q8H PRN 11/07/12 01/28/18 Cholecalciferol (Vitamin D3) 2,000 unit PO DAILY 11/07/12 01/28/18 [Vitamin D] Fenofibric Acid (Choline) 135 mg PO DAILY 11/07/12 01/28/18 [Trilipix] Lisinopril [Zestril] 5 mg PO DAILY 11/07/12 01/28/18 Tamsulosin [Flomax] 0.4 mg PO QPM 11/07/12 01/28/18 Finasteride 5 mg PO QPM 01/28/18 01/28/18 Oxybutynin Chloride [Ditropan Xl] 10 mg PO QPM 01/28/18 01/28/18 - PHYSICAL EXAM AT DISCHARGE General Appearance: positive: No acute distress Eyes Bilateral: positive: Normal inspection ENT: positive: ENT inspection nml Neck: positive: Nml inspection Respiratory: positive: Chest non-tender Cardiovascular: positive: Regular rate & rhythm Abdomen: positive: Non-tender Back: positive: Nml inspection Skin: positive: Color nml Extremities: positive: Non-tender Neurologic/Psychiatric: positive: Oriented x3 - LABS Result Diagrams: 01/31/18 08:28 01/31/18 08:28 - SEPSIS Current Stage of Sepsis: Ruled out - FOLLOW UP Follow Up: cardiology and general surgery - TIME SPENT Time Spent in Discharge (Minutes): 30"
== END 2018-01-31 15:15 | disposition home or self-care (01) | DRG 393 ==
LOC: ED 08:48 → SDS 11:30 → MS2 14:13 → OBSVTOIN 01-29 10:19
PROVIDERS: ADMIT Surgery; ATTEND Surgery
PROC: 0YU50JZ Supplement Right Inguinal Region with Synthetic Substitute, Open Approach (ICD-10-PCS; principal; 2018-01-28 12:30)
DX: K40.31 Unilateral inguinal hernia, with obstruction, without gangrene, recurrent (principal); K40.30 Unilateral inguinal hernia, with obstruction, without gangrene, not specified as recurrent; I21.4 Non-ST elevation (NSTEMI) myocardial infarction; J18.9 Pneumonia, unspecified organism; J44.0 Chronic obstructive pulmonary disease with (acute) lower respiratory infection; I35.1 Nonrheumatic aortic (valve) insufficiency; I44.7 Left bundle-branch block, unspecified; E78.5 Hyperlipidemia, unspecified; F12.280 Cannabis dependence with cannabis-induced anxiety disorder; F41.0 Panic disorder [episodic paroxysmal anxiety]; F32.9 Major depressive disorder, single episode, unspecified; N40.1 Benign prostatic hyperplasia with lower urinary tract symptoms; R35.0 Frequency of micturition; R35.1 Nocturia; R39.15 Urgency of urination; Y93.83 Activity, rough housing and horseplay; Y92.009 Unspecified place in unspecified non-institutional (private) residence as the place of occurrence of the external cause; Z87.891 Personal history of nicotine dependence; Z85.820 Personal history of malignant melanoma of skin; Z86.19 Personal history of other infectious and parasitic diseases; Z87.01 Personal history of pneumonia (recurrent); Z86.59 Personal history of other mental and behavioral disorders; I10 Essential (primary) hypertension; F12.20 Cannabis dependence, uncomplicated; Z79.899 Other long term (current) drug therapy
CPT/HCPCS: 36415; 71045; 80048; 80053; 80202; 81001; 82977; 83036; 83605; 83735; 84484; 85025; 85651; 86140; 93005; 93306; 94640; 96361; 96374; 99283; 99284

== ENCOUNTER 2019-04-24 08:56 | Outpatient (CLI) | payer MEDICARE, BC | END 2019-04-24 08:57 | disposition home or self-care (01) | LOC: LAB 08:56 | PROVIDERS: ATTEND Internal Medicine | DX: E87.5 Hyperkalemia (principal) | CPT/HCPCS: 36415; 84132 ==

== ENCOUNTER 2023-05-30 10:31 | Outpatient (CLI) | payer MEDICARE, BC ==
--- NOTE | 2023-05-31 09:40 | Mammography Report ---
MALE BILATERAL DIGITAL DIAGNOSTIC MAMMOGRAM 3D/2D WITH LATEROMEDIAL: 05/30/2023 CLINICAL: Palpable left breast lump. No prior exams were available for comparison. There is asymmetric left breast gynecomastia corresponding to area of clinical concern. No significant masses, calcifications, or other findings are seen in either breast. IMPRESSION: BENIGN Asymmetric left breast gynecomastia. Finding is benign. No mammographic evidence of malignancy. Clin ical follow-up is recommended, and further management of palpable abnormalities or other focal signs or symptoms should be based on the results of clinical evaluation. If palpable abnormality or other c oncerning symptom persists or progresses, further clinical evaluation should be considered. Findings and recommendations were conveyed to the patient during today's evaluation. This exam was interpreted at Station ID: [id number]. NOTE: For mammograms, a report in lay terms will be sent to the patient. Approximately 15% of breast malignancies will not be visualized mammographically. In the management of a palpable breast mass, a negative mammogram must not discourage biopsy of a clinically suspicious lesion. Electronically Signed By: Dinorah Yang M.D., PH.D eb/:05/30/2023 11:35:18 ACR BI-RADS Category 2: Benign Finding(s) 3342F PARENCHYMAL PATTERN: (F) - The breast(s) demonstrate(s) diffuse fatty replacement. BI-RADS CATEGORY: (2) - 2 Unspecified - other recall n/a LATERALITY: (B)
== END 2023-05-30 10:32 | disposition home or self-care (01) ==
LOC: DI 10:31
PROVIDERS: ATTEND Internal Medicine
DX: N62 Hypertrophy of breast (principal)